=== PATIENT | male | born 1950 | race Caucasian/White ===

== ENCOUNTER 2023-08-04 08:52 | Inpatient (IN) | payer OTHER ==
[~2023-08-04] VITALS: Ht 190.5 cm; Wt 132.1 kg
[2023-08-04] VITALS (22 sets, daily range): BP systolic 60–176; BP diastolic 37–114
[~2023-08-04 08:52] MED LIST: ALBU90OI INH; CIPR500 PO; Flomax0.4 MG PO; ONDA4 PO; ONDA4ODT MM; Roxicodone5 MG PO
[2023-08-04 09:43] LABS: Hemoglobin 15.2 g/dL (13.5-17.5); Mean Corpuscular HGB 30.9 pg (26.0-34.0); Mean Corpuscular HGB Conc 33.8 g/dL (31.5-36.5); Mean Corpuscular Volume 92 fL (80-100); Mean Platelet Volume 10.2 fL (9.1-12.4); Platelet Count 204 K/mm3 (150-400); RDW Coefficient Variation 13.5 % (11.7-14.2); RDW Standard Deviation 45.7 fL (35.1-46.3); Red Blood Cell Count 4.92 M/mm3 (4.30-5.90); White Blood Cell Count 24.81 K/mm3 (4.00-11.30)
[2023-08-04 10:02] LABS: Albumin, Blood 3.2 g/dL (3.4-5.0); Bilirubin, Total 2.3 mg/dL (0.1-1.0); Bun/Creatinine Ratio 19.6 (12.0-20.0); Calcium, Blood 8.5 mg/dL (8.5-10.1); Creatinine, Blood 2.24 mg/dL (0.60-1.20); Globulin, Blood 3.3 g/dL (2.2-4.0); Potassium, Blood 4.4 mmol/L (3.5-5.5); Total Protein, Blood 6.5 g/dL (6.4-8.2)
[2023-08-04 10:14] LABS: BAND PERCENT MAN 18 % (0-8); BASOPHILS PERCENT MAN 0 % (0-2); EOSINOPHILS PERCENT MAN 0 % (0-6); LYMPHOCYTES ABSOLUTE MAN 0.74 K/mm3 (0.84-5.20); LYMPHOCYTES PERCENT MAN 3 % (21-46); METAMYELOCYTE ABSOLUTE MAN 0.49 K/mm3 (0.00-0.00); METAMYELOCYTE PERCENT MAN 2 % (0-0); MONOCYTES ABSOLUTE MAN 0.24 K/mm3 (0.16-1.47); MONOCYTES PERCENT MAN 1 % (4-13); NEUTROPHILS ABSOLUTE MAN 23.32 K/mm3 (1.96-9.15); SEG NEUTROPHILS PERCENT MAN 76 % (41-73); TOTAL CELLS COUNTED 100
[2023-08-04 12:49] LABS: Anti-Xa UFH, PHA Monitoring <0.10 IU/mL; International Normalized Ratio 1.64; Prothrombin Time Results 16.7 Sec (9.7-11.5)
--- NOTE | 2023-08-04 13:15 | NUR ---
Patient arrived on monitor and O2. He is alert and oriented and is able to communicate needs. His RR in the 30-40 and sats low 90%'s he is audibly coarse lung sounds. He was just finishing Abx on arrival. He was 4 person slide to ICU bed 10, hooked to monitor and 6L O2 via HF NC and sats >90%. Got stripped out of street cloths and uribnal at table side per request. Independent with positioning in bed for comfort. Called Dr Rowe and he arrived to assess. Systolic in the 80's and Midodrine 10 mg TID ordered. Weighed and called pharmacy for Heparin dosing. Student in room assessing
--- NOTE | 2023-08-04 15:30 | NUR ---
Called Dr Rowe and Midodrine orders and heparin started from ER orders. Midodrine 10 MG TID has been working and systolic >110. Heparin gtt at 15 units/kg/mion at 103 kg adjusted weight. He continues to work hard with minimal rest and continues cough from mucus. Roommate by and gave info. He has urinated 300 ml's tea colored urine.
[2023-08-04] MEDS ORDERED: DILT60 PO (15:46)
[2023-08-04] MEDS ORDERED: XARELTO20 MG PO (15:49)
[2023-08-04] MEDS ORDERED: DULO30 PO (15:54)
[2023-08-04] MEDS ORDERED: GABA300 PO (15:55)
[2023-08-04] MEDS ORDERED: MELA3 PO (15:56)
[2023-08-04] MEDS ORDERED: CYCL10 PO (15:57)
[2023-08-04] MEDS ORDERED: FAMO40 PO (15:57)
[2023-08-04] MEDS ORDERED: ATOR40TA PO (15:58)
--- NOTE | 2023-08-04 18:19 | NUR ---
[facility]air has been consulted and tried BiPap then air Vo at 40L 50% and patient unable to tolerate either. The plan after Dr speaking with patient is to intubate if Atrovent and Bumex does not work effecrtivly. patient frien at [facility] and patient gave decsion contact name and number, see Dr Mcnair note
[2023-08-04 19:25] LABS: Source, Urine Foley catheter
--- NOTE | 2023-08-04 19:27 | NUR ---
Patiient intubated with 7.5 ET on third attempt and is 26 cm at lower teeth. Dr Mcnair used 15 ml propofol 50 Rocironium and 200mcg Phenylepherine. Good color change and started Propofol gtt at 30 mcg/kg/hr. Placed OG and confirmed by xray with ET. I also place 16Fr Temp Encarnacion draining to gravity. Gave report to David KERNS
[2023-08-04 19:41] LABS: Appearance, Urine Clear (Clear); Bilirubin, Urine Neg (Neg); Blood, Urine 1+ (Neg); Color, Urine Yellow (P-Yellow); Glucose Qualitative, Urine Neg (Neg); Ketones, Urine Neg (Neg); Leukocyte Esterase, Urine Neg (Neg); Nitrite, Urine Neg (Neg); Protein, Urine Neg (Neg); Specific Gravity, Urine 1.015 (1.003-1.022); Urobilinogen, Urine NORM (Normal)
[2023-08-04 20:20] LABS: Bacteria Few /hpf; Red Blood Cells, Urine 0-2 /hpf (0-2); Squamous Epithelial Cells Rare /hpf (Few)
[2023-08-04 20:21] LABS: Mucus Light (0-Heavy)
--- NOTE | 2023-08-04 22:12 | NUR ---
ASSUMED CARE PT INTUBATED AND SEDATED; SPO2 >92% ON VENTILATOR; PT GIVEN LOPRESSOR AT START OF SHIFT D/T RATE IN 160'S, SEDATION HAD ALSO BEEN TITRATED UP D/T PT AGITATION AND FIGHTING VENTILATOR (PROPOFOL AT 50MCG/KG/MIN PER DR SARKAR). PT BECAME HYPOTENSIVE AND CENTRAL LINE WAS PLACED W/ NEOSYNEPHRINE INITIATED. HR IS NOW IN THE 100-110'S; MAP 65~ (TITRATING PER EMAR); AND SPO2 MAINTAINING >92%.
--- NOTE | 2023-08-04 22:51 | NUR ---
UPDATE FENTANYL GIVEN AND PT BECAME EVEN MORE HYPOTENSIVE. KRISTY TITRATED UP (SEE FLOWSHEET) AND PROPOFOL TITRATED DOWN. PROPOFOL AT HIGH RATE FOR VENTILATOR COMPLIANCE PER SARKAR AND MAINTAINED AT HIGH RATE D/T ROCURONIUM ADMINISTRATION, PT IS NOW OVERBREATHING VENT AND PROPOFOL TITRATED DOWN.
--- NOTE | 2023-08-04 22:54 | NUR ---
UPDATE PT FEBRILE @ 102.0; TYLENOL ALREADY GIVEN. ICEPACKS APPLIED.
--- NOTE | 2023-08-04 23:15 | NUR ---
UPDATE FIRE EDUCATION NOT GIVEN D/T PT BEING INTUBATED/SEDATED.
[2023-08-05] VITALS (90 sets, daily range): BP systolic 75–134; BP diastolic 39–120
[2023-08-05 01:04] LABS: Hematocrit 44.4 % (37.0-53.0); Hemoglobin 14.8 g/dL (13.5-17.5); Mean Corpuscular HGB 30.5 pg (26.0-34.0); Mean Corpuscular HGB Conc 33.3 g/dL (31.5-36.5); Mean Corpuscular Volume 92 fL (80-100); Platelet Count 239 K/mm3 (150-400); RDW Coefficient Variation 14.2 % (11.7-14.2); RDW Standard Deviation 47.9 fL (35.1-46.3); Red Blood Cell Count 4.85 M/mm3 (4.30-5.90); White Blood Cell Count 25.23 K/mm3 (4.00-11.30)
[2023-08-05 01:22] LABS: Albumin, Blood 2.7 g/dL (3.4-5.0); Albumin/Globulin Ratio 0.7 (0.8-1.8); Bilirubin, Total 0.9 mg/dL (0.1-1.0); Bun/Creatinine Ratio 21.5 (12.0-20.0); Calcium, Blood 7.5 mg/dL (8.5-10.1); Creatinine, Blood 2.37 mg/dL (0.60-1.20); Globulin, Blood 3.8 g/dL (2.2-4.0); Potassium, Blood 4.5 mmol/L (3.5-5.5); Total Protein, Blood 6.5 g/dL (6.4-8.2)
--- NOTE | 2023-08-05 04:05 | NUR ---
UPDATE LO CATHETER IRRIGATED D/T PT NOT HAVING OUTPUT AND BLADDER SCAN SHOWING 309. DURING IRRIGATION, CATHETER AND DRAINAGE BAG DISCONNECTED. LO PULLED AND NEW ONE RE-INSERTED. URINE SAMPLE TO BE COLLECTED. WHEN PULLING LO, PUS WAS NOTED COMING OUT OF URETHRA WHEN LO CATHETER WAS IRRIGATED 40ML'S WAS WITHDRAWN W/ 30~ML'S (ESTIMATION) OF URINE ON ROSA PAD.
[2023-08-05 05:17] LABS: Source, Urine Foley catheter
[2023-08-05 05:28] LABS: Appearance, Urine Hazy (Clear); Bilirubin, Urine Neg (Neg); Blood, Urine 4+ (Neg); Color, Urine Yellow (P-Yellow); Glucose Qualitative, Urine Neg (Neg); Ketones, Urine Neg (Neg); Leukocyte Esterase, Urine 3+ (Neg); Nitrite, Urine Neg (Neg); Protein, Urine 2+ (Neg); Urobilinogen, Urine NORM (Normal)
[2023-08-05 06:02] LABS: Amorphous Light (0-Heavy); Bacteria Many /hpf; Mucus Light (0-Heavy); Red Blood Cells, Urine 25-50 /hpf (0-2); Squamous Epithelial Cells Few /hpf (Few); White Blood Cells, Urine 25-50 /hpf (0-5)
--- NOTE | 2023-08-05 06:29 | NUR ---
SHIFT SUMMARY PT REMAINS INTUBATED AND SEDATED; SPO2 >92% ON VENTILATOR 16/440/5/85%; HR 110-120'S; MAP >65. HEPARIN, NEOSYNEPHRINE, AND PROPOFOL INFUSING (SEE FLOWSHEET). LO CATHETER PATENT AND DRAINING TO GRAVITY. LO CATHETER WAS REPLACED D/T DISLODGEMENT OF DRAINAGE BAG DURING LO IRRIGATION. IRRIGATED LO D/T MINIMAL URINE OUTPUT AND PT HAVING BLADDER SCAN SHOW 309. PURULENCE NOTED WHEN PULLING INITIAL LO.
[2023-08-05 09:24] LABS: Acinetobacter baumannii DNA Not Detected copy/mL (NOT DETECT); Enterobacter cloacae DNA Not Detected copy/mL (NOT DETECT); Escherichia coli DNA Not Detected copy/mL (NOT DETECT); Haemophilus influenzae DNA Not Detected copy/mL (NOT DETECT); Klebsiella aerogenes DNA Not Detected copy/mL (NOT DETECT); Klebsiella oxytoca DNA Not Detected copy/mL (NOT DETECT); Klebsiella pneumoniae DNA Not Detected copy/mL (NOT DETECT); Moraxella catarrhalis DNA Not Detected copy/mL (NOT DETECT); Proteus sp DNA Not Detected copy/mL (NOT DETECT); Pseudomonas aeruginosa DNA Not Detected copy/mL (NOT DETECT); Serratia marcescens DNA Not Detected copy/mL (NOT DETECT); Staphylococcus aureus DNA Not Detected copy/mL (NOT DETECT)
[2023-08-05 09:25] LABS: Adenovirus DNA Not Detected (NOT DETECT); Chlamydia pneumonia Not Detected (NOT DETECT); Human Coronavirus RNA Not Detected (NOT DETECT); Human Metapneumovirus RNA Not Detected (NOT DETECT); Influenza virus A RNA Not Detected (NOT DETECT); Influenza virus B RNA Not Detected (NOT DETECT); Legionella pneumophila Not Detected (NOT DETECT); Mycoplasma pneumoniae Not Detected (NOT DETECT); Rhinovirus+Enterovirus RNA Not Detected (NOT DETECT); Streptococcus agalactiae DNA Not Detected copy/mL (NOT DETECT); Streptococcus pneumoniae DNA Detected Bin >=10^7 copy/mL (NOT DETECT); Streptococcus pyogenes DNA Not Detected copy/mL (NOT DETECT)
[2023-08-05 09:26] LABS: Parainfluenza virus RNA Not Detected (NOT DETECT); Respiratory syncytial Vir RNA Not Detected (NOT DETECT)
--- NOTE | 2023-08-05 18:05 | NUR ---
SHIFT SUMMARY PT MADE GOOD PROGRESS THIS SHIFT. PT REMAINS INTUBATED AND SEDATED. PT WITH PERIODS OF RESTLESSNESS AND COUGHING FITS. PT UNABLE TO FOLLOW COMMANDS, BUT MOVES ALL EXTREMITIES SPONTANEOUSLY. PT VENT SETTINGS AC 16, TV 440, PEEP 5, FIO2 TITRATED DOWN TO 55%. PT WITH THICK PHAM ETT SECRETIONS WITH SUCTION. CENTRAL LINE TO RIJ REMAINS C/D/I. PT SEDATED WITH PROPOFOL AT 50 MCG/KG/MIN. HEPARIN INFUSING AT 19 UNITS/KG/HR AND NEOSYNEPHRINE TITRATED DOWN TO 80 MCG/MIN. VITAL SIGNS HAVE REMAINED STABLE. OGT REMAINS IN PLACE WITH TF STARTED AT 25 ML/HR THIS SHIFT. LO REMAINS IN PLACE WITH DARK YELLOW URINE OUTPUT NOTED. RECTAL TUBE PLACED THIS MORNING, PT CONTINUES WITH DARK BROWN LIQUID STOOL. SBW RESTRAINTS REMAIN IN PLACE. PT SIGNIFICANT OTHER AND ROOM MATE BY TO SEE PT THIS AFTERNOON. UPDATED TO PT CONDITION AND PLAN OF CARE. WILL CONTINUE TO MONITOR AND REPORT OFF TO ONCOMING RN.
--- NOTE | 2023-08-05 20:17 | NUR ---
ASSUMED CARE PT IS INTUBATED AND SEDATED. HR IN THE 90-100'S; MAP >65; SPO2 >92% ON VENTILATOR. PROPOFOL, HEPARIN, AND NEOSYNEPHRINE INFUSING (SEE FLOWSHEET). SEDATION VACATION WAS GIVEN W/ PROPOFOL TITRATED DOWN TO 20MCG/KG/MIN D/T PT NOT TOLERATING SEDATION ON SB PER REPORT. PT ATTEMPTED TO OPEN EYES WHEN PROMPTED, BUT DID NOT FOLLOW ANY OTHER COMMANDS. BEGAN TO COUGH AND FIGHT VENTILATOR SO SEDATION WAS TITRATED BACK UP. PT IS RESTING QUIETLY AT THIS TIME.
--- NOTE | 2023-08-05 20:21 | NUR ---
UPDATE BARBI MCGHEE CALLED TO INFORM THIS RN THAT SHE HAS LOCATED THE PT'S ADVANCED DIRECTIVE AND WILL BRING IN TOMORROW.
[2023-08-06] VITALS (80 sets, daily range): BP systolic 55–119; BP diastolic 41–82
[2023-08-06 04:05] LABS: Hematocrit 38.7 % (37.0-53.0); Hemoglobin 12.7 g/dL (13.5-17.5); Mean Corpuscular HGB 30.6 pg (26.0-34.0); Mean Corpuscular HGB Conc 32.8 g/dL (31.5-36.5); Mean Corpuscular Volume 93 fL (80-100); Platelet Count 186 K/mm3 (150-400); RDW Coefficient Variation 14.6 % (11.7-14.2); RDW Standard Deviation 50.8 fL (35.1-46.3); Red Blood Cell Count 4.15 M/mm3 (4.30-5.90); White Blood Cell Count 18.11 K/mm3 (4.00-11.30)
[2023-08-06 04:22] LABS: Bun/Creatinine Ratio 25.3 (12.0-20.0); Calcium, Blood 7.3 mg/dL (8.5-10.1); Creatinine, Blood 2.33 mg/dL (0.60-1.20); Phosphorus, Blood 3.4 mg/dL (2.5-4.9); Potassium, Blood 3.4 mmol/L (3.5-5.5)
--- NOTE | 2023-08-06 06:21 | NUR ---
SHIFT SUMMARY PT REMAINS INTUBATED AND SEDATED. SPO2 >92% 16/440/5/55%; MAP >65; HR IN THE 90'S. PROPOFOL, HEPARIN, AND NEOSYNEPHRINE INFUSING (SEE FLOWSHEET). PT RESTED QUIETLY T/O NIGHT W/ INTERMITTENT COUGHING THAT WAS RESOLVED BY SUCTIONING. MODERATE AMOUNT OF THICK PHAM SECRETIONS SUCTIONED OUT. NO ACUTE EVENTS OVERNIGHT.
--- NOTE | 2023-08-06 15:51 | NUR ---
Pt. in bed alert but intubated when I enter the room. Friends are present and welcome my visit. Am able to communicate with Pt. although he must respond nonverbally with hand signals. Friends a re supportive and are able to engage in a form of life review for the Pt. Pt. communicates that the breathing tube is uncomfortable. With empathy am able to normalize the Pt. expereince. Prayed for Pt. with his permission. Pt. 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
[2023-08-06 18:40] LABS: C DIFFICILE DNA Negative (Negative)
--- NOTE | 2023-08-06 19:18 | NUR ---
SHIFT SUMMARY PATIENT WAS ON SPONTANEOUS FOR MOST OF SHIFT WITH PROPOFOL OFF. PRECEDEX INF @ 0.3 MCG/KG/HR. KRISTY WAS ABLE TO BE TITRATED OFF ONCE PROPOFOL WAS TURNED OFF. LO REMOVED D/T PATIENT DISCOMFORT. RECTAL TUBE REMAINS IN PLACE AND C-DIFF SPECIMIN SENT. HEPARIN INCREASED TO 23 UNITS/KG/HR. AT END OF SHIFT PATIENT BECAME CONFUSED AND REQUESTING NURSE FROM LAST NIGHT VIA WRITING, BUT WHEN LAST NIGHT NURSE WAS BROUGHT TO THE ROOM HE SHOOK HIS HEAD "NO". PROPOFOL RESTARTED FOR VENTILATOR COMPLIANCE AFTER RR INCREASED TO 30'S-40'S. NO OTHER CHANGES DURING SHIFT.
--- NOTE | 2023-08-06 20:52 | NUR ---
ASSUMED CARE PT INITIALLY ALERT AND ORIENTED X2-3 AT START OF SHIFT, WRITING MESSAGE TO OFFGOING RN, CONFUSED ABOUT WHO TOOK CARE OF HIM LAST NIGHT. SEDATION WAS RE-INITIATED D/T DELAYING EXTUBATION TIL TOMORROW PER OFFGOING RN. AFTER SEDATION WAS INITIATED, PT'S MAP DROPPED TO 60~'S AND NEOSYNEPHRINE WAS RE-INITIATED. PT IS CURRENTLY RESTING QUIETLY, SPO2 >92%, MAP >65, HR 90'S. HEPARIN, NEOSYNEPHRINE, AND PROPOFOL INFUSING W/ PRECEDEX ON SB (SEE FLOWSHEET). RECTAL TUBE AND CONDOM CATHETER PATENT AND DRAINING TO GRAVITY.
--- NOTE | 2023-08-06 21:25 | NUR ---
UPDATE PT NOT GIVEN FIRE EDUCATION D/T INTUBATED/SEDATED STATUS. NO IGNITABLE OBJECTS IN ROOM
[2023-08-07] VITALS (81 sets, daily range): BP systolic 77–123; BP diastolic 59–99
[2023-08-07 03:53] LABS: Bun/Creatinine Ratio 30.5 (12.0-20.0); Calcium, Blood 8.1 mg/dL (8.5-10.1); Creatinine, Blood 1.77 mg/dL (0.60-1.20); Phosphorus, Blood 2.3 mg/dL (2.5-4.9); Potassium, Blood 3.4 mmol/L (3.5-5.5)
--- NOTE | 2023-08-07 05:56 | NUR ---
SHIFT SUMMARY PT IS INTUBATED AND SEDATED. SPO2 >92% 16/440/5/50%; MAP>65; RATE IN THE 80'S. TUBE FEED, HEPARIN, PRECEDEX, PROPOFOL, AND NEOSYNEPHRINE INFUSING (SEE FLOWSHEET). NEOSYNEPHRINE TITRATED DOWN GRADUALLY T/O NIGHT. NO ACUTE EVENTS OVERNIGHT. RECTAL TUBE PATENT AND DRAINING TO GRAVITY.
--- NOTE | 2023-08-07 11:26 | NUR ---
Pt. is intubated and mostly not responsive. Pt. is being weaned off of sedation. Pts. friend is present and welcomes my visit. Facilitate a life review and eastablish relational trust. Consider matters of yarelis and belief. Friend verbal[facility] and welcomed my return. Will remain avilable to the Pt. and his support relationships.
--- NOTE | 2023-08-07 18:38 | NUR ---
Shift summary. Assumed care at 0700, bedside report received. Pt on ventilator and sedation. Sedation titrated off this am, see flowsheet. Pt extubated at approximately 1307 to airvo 50L, 80% Fi02 with good results. Pt alert and oriented, call light within reach. Pt continues to have liquid bowel movements. Pt required straight cath twice during shift for urinary retention. Currently resting in bed. R/IJ central line remains in place, heparin infusing at 23 units/kg/hr, NS TKO. Pt remains in AFIB at this time. All other VS stable. See chart for further details. Will report off to nightshift RN.
--- NOTE | 2023-08-07 21:40 | NUR ---
PT REFUSES TO WEAR OXYGEN SUPPLEMENTATION AT THIS TIME. PT GIVEN ALL INFORMATION REGARDING OXYGEN NEEDS OF THE BODY AND POSSIBLE NEED OF INTUBATION OR IF NOT SUPPLEMENTED PROPERLY. PT STILL REFUSING OXYGEN AT THIS TIME. SKIMMER YING CHAVEZ INFORMED OF REFUSAL. SPO2 RANGING FROM 85% TO 90% DEPENDING ON MOVEMENT, COUGHING UP OF SPUTUM, AND TALKING. WILL CONTINUE TO MONITOR.
--- NOTE | 2023-08-07 22:12 | NUR ---
PT CALLED THIS RN TO ROOM. PT COMPLAINING OF LEG CRAMPS. PT ASKED THIS RN IF IT WAS DUE TO NOT HAVING OXYGEN SUPPLEMENTATION. PT INFORMED THAT IT COULD BE. THIS RN ASKED PT 4 QUESTIONS TO DETERMINE ORIENTATION. A/O X4. PT STATES HE DOES NOT WANT TO BE INTUBATED AGAIN. PT REQUESTED TO HAVE OXYGEN SUPPLEMENTATION AGAIN. PT PUT ON 4 L NC AT THIS TIME. SPO2 >91%.
[2023-08-08] VITALS (50 sets, daily range): BP systolic 112–171; BP diastolic 64–120
[2023-08-08 03:17] LABS: Hematocrit 37.6 % (37.0-53.0); Hemoglobin 12.6 g/dL (13.5-17.5); Mean Platelet Volume 10.4 fL (9.1-12.4); Platelet Count 204 K/mm3 (150-400)
[2023-08-08 03:34] LABS: Bun/Creatinine Ratio 32.4 (12.0-20.0); Calcium, Blood 8.1 mg/dL (8.5-10.1); Creatinine, Blood 1.73 mg/dL (0.60-1.20); Magnesium, Blood 2.1 mg/dL (1.6-2.4); Phosphorus, Blood 3.2 mg/dL (2.5-4.9); Potassium, Blood 3.2 mmol/L (3.5-5.5)
--- NOTE | 2023-08-08 05:55 | NUR ---
END OF SHIFT SUMMARY A/O X4. PT IS VERY TALKATIVE. REQUESTING NO VISITORS TODAY D/T NOT FEELING UP TO ENTERTAINING ANYONE. PT USED CALL LIGHT EVERY 5-15 MINUTES THROUGHOUT THE NIGHT. RESP- PT TOOK OFF HIGH FLOW AT BEGINNING OF SHIFT, WITHIN AND HOUR OF REFUSING TO WEAR OXYGEN SUPPLEMENT PT AGREED TO USE NC. PT HAS MAINTAINED SPO2 > 90% WITH 4.5 L/NC. PT USES SUCTION ON HIS OWN FOR SPUTUM. COUGH IS SUFFICIENT WITH MODERATE OUTPUT OF PHAM SPUTUM. PT C/O INCREASED SOB MID SHIFT. UPON AUSCULTATION CRACKLES HEARD BILATERALLY IN LOWER TO MID LOBES. LASIX GIVEN PER ORDER AFTER BNP RESULTS >200. URINATION INCREASED WELL. CARDIAC- A-FIB THROUGHOUT SHIFT. HEPARIN NOT CHANGED. DENIES CP. GI,- MULTIPLE BM THIS SHIFT. LIQUID/PASTEY STOOL BROWN IN COLOR. CONDOM CATHETER INTIATED IN START OF SHIFT D/T HIGH NEED FOR URINAL WITH LITTLE OUTPUT. BLADDER SCAN DONE AT TIME OF INCREASED HR AND RR WHEN CRACKLES HEARD IN LUNGS. FOUND ONLY 130 MLS URINE IN BLADDER AT THAT TIME. PT NOW COMPLAINING OF PAIN WHILE URINATING IN TIP OF PENIS AREA. CONDOM CATHETER DC'D PER PT REQUEST WITH NO RELIEF. INTEG- SLIGHT REDNESS IN GROIN AND BUTTOCK AREAS WHERE STOOL HAS TOUCHED THROUGHOUT THIS SHIFT. PT CHANGED PROMPTLY EACH TIME. POWDER USED D/T MOISTURE IN FOLDS FROM CONSTANT WIPING. NO OTHER ACUTE CHANGES TO REPORT AT THIS TIME. WILL CONTINUE TO MONITOR UNTIL REPORT GIVEN TO AM RN.
--- NOTE | 2023-08-08 07:42 | NUR ---
Assumed care at approximately 0700, bedside report received from nightshift RN. Pt resting in bed, on 02 via NC at 5 L/min. Pt alert, c/o lack of sleep. R/IJ central line in place, Heparin infusing at 23 units/kg/hr. Call light within reach, no acute needs at time of report. Will continue to monitor.
--- NOTE | 2023-08-08 18:37 | NUR ---
Summary. Pt rested in bed throughout shift, up to side of bed with OT and PT. Pt on NC at 4 L/min, able to tolerate exertion for greater periods of time this shift. Heparin infusion DC'd at end of shift per Dr. Rowe. R/IJ central line remains in place, PG placed in MEJIA. Pt continues to have occasional incontinent voids/bm. CHG bath completed this shift. Swallow eval completed this morning, see notes. No acute events this shift, see chart for further details. Will continue to monitor and report off to nightshift RN.
--- NOTE | 2023-08-09 00:34 | NUR ---
SHIFT SUMMARY/REPORT TO MEDICAL FLOOR RN this rn assumed care at 1900. vital signs stable. tele aflutter 90-100. spo2 >90% on 2l nc. patient is alert and oriented x4. perrla. patient uses call light often and this rn educated patient on appropriate use. patient did verbalize understanding. see shift assessment for further detials. patient central line removed this shift and no issues noted. dressing in place. condom cath placed this shift and draining with gravity. patient takes pills whole one at time with water or liquid of choice. plan of care is up to date. moving up to medical floor room 340. report given to medical floor nurse.
--- NOTE | 2023-08-09 00:50 | NUR ---
IN HOUSE TRANSFER. PATIENT TRANSFERED FROM ICU TO ROOM 340 BY ICU HOSPITAL BED WITH ONE ASSIST. PATIENT TRANSFERED TO BED IN ROOM FROM ICU BED WITH SLIDE SHEET AND 4 PERSON ASSIST. PATIENT ARRIVED WITH A CONDOM CATH AND 2LPM OXYGEN VIA NASAL CANNULA. MEDS AND CHART SENT WITH PATIENT.
[2023-08-09 02:05] VITALS: BP 152/104
--- NOTE | 2023-08-09 04:32 | NUR ---
SHIFT ASSESSMENT. PATIENT IS PLEASANT AND COOPERATIVE WITH CARE. PATIENT PRODUCTION CONTROLLER LIGHT OFTEN FOR DRINKS, RAISING AND LOWERING HEAD OF BED-ENCOURAGED PATIENT TO DO MUCH HE CAN TO AID IN FUNCTION. PATIENT IS ABLE TO HELP ROLL WITH CHNANGES. CONDOM CATHETER PLACED DRAINING TO GRAVITY. PATIENT IS ABLE TO USE SECTION HIMSELF TO REMOVE SECRETIONS. HEAD OF BED ELEVATED, PATIENT DESATS IN TO THE HIGH 80'S WITH ACTIVITY SUCH INCONTINENCE CHANGES. PATIENT DENIES CHEST PAIN/PRESSURE/TIGHTNESS. PAIN ASSESSED-PATIENT DENIES PAIN BUT REPORTS DISCOMFORT R/T PREVIOUS STRAIGHT CATHS. FOOT OF BED REMOVED FOR PATIENT COMFOT PATIENT IS TALL AND FEET PUSHED AGAINST END OF BED. PATIENT HAD SCANT AMOUNT OF BLOOD WHEN HE BLEW HIS NOSE-REPORTS NOSE FEELS DRY, ADDED HUMIDIFICATION TO OXYGEN. PATIENT ON TELE RUNNING AFIB AT 107 BPM, TACHY ON CONTINUOUS PULSE OX. BED IS LOCKED IN THE LOWEST POSITION WITH CALL LIGHT IN REACH FOR SAFETY.
[2023-08-09 05:33] LABS: Hemoglobin 13.7 g/dL (13.5-17.5); Mean Platelet Volume 10.1 fL (9.1-12.4); Platelet Count 260 K/mm3 (150-400)
[2023-08-09 06:08] LABS: Bun/Creatinine Ratio 36.1 (12.0-20.0); Calcium, Blood 8.8 mg/dL (8.5-10.1); Creatinine, Blood 1.33 mg/dL (0.60-1.20); Magnesium, Blood 2.2 mg/dL (1.6-2.4); Phosphorus, Blood 2.4 mg/dL (2.5-4.9); Potassium, Blood 3.2 mmol/L (3.5-5.5)
--- NOTE | 2023-08-09 06:29 | NUR ---
CALLED PLACED TO BARBI MCGHEE PER PATIENTS REQUEST TO NOTIFY HER OF NEW ROOM ASSIGNMENT.
[2023-08-09 07:48] VITALS: BP 141/91
[2023-08-09 12:01] LABS: Source, Urine Straight Cath
[2023-08-09 12:13] LABS: Appearance, Urine Clear (Clear); Bilirubin, Urine Neg (Neg); Blood, Urine 4+ (Neg); Glucose Qualitative, Urine Neg (Neg); Ketones, Urine Neg (Neg); Leukocyte Esterase, Urine Neg (Neg); Nitrite, Urine Neg (Neg); Protein, Urine Neg (Neg); Urobilinogen, Urine NORM (Normal)
[2023-08-09 12:27] LABS: Color, Urine Pale Yellow (P-Yellow)
[2023-08-09 12:34] LABS: White Blood Cells, Urine 0-2 /hpf (0-5)
[2023-08-09 12:45] LABS: Bacteria Few /hpf
[2023-08-09 12:46] LABS: Amorphous Mod (0-Heavy)
[2023-08-09 12:48] LABS: Squamous Epithelial Cells Few /hpf (Few)
[2023-08-09 12:49] LABS: Mucus Light (0-Heavy)
[2023-08-09 14:55] VITALS: BP 143/95
--- NOTE | 2023-08-09 17:16 | NUR ---
SHIFT SUMMARY: Pt remains A&Ox3 this shift. Generalized pain managed with po meds. VSS. Tachypnea noted, coached on deep breathing exercises and to slow breathing. Continuous pulse ox in place. OOB with 2 person ast to recliner this am. Pt able to nap this afternoon. Call light in reach, will continue to monitor.
[2023-08-09 20:13] VITALS: BP 147/99
[2023-08-10 02:20] VITALS: BP 145/88
--- NOTE | 2023-08-10 05:17 | NUR ---
SUMMARY PT RESTING IN BED, FRIEND IN THE RECLINER NEXT TO HIM, PT HAS BEEN RESTLESS T/O THE NIGHT, TALKATIVE T/O THE NIGHT, PT MED PER EMAR FOR SLEEP AND FOR PAIN, PT COUGHING UP PHAM SPUTUM AND IS ABLE TO SUCTION HIMSELF, PT EXPRESSED HIS IMPATIENTCE WITH HIS RECOVERY AND WITH HIS WEAKNESS, EDUCATED PATIENT ABOUT THE IMPORTANCE OF WORKING WITH THERAPY, PLAN IS TO GO TO SNF WHEN READY, PT HAD AN EPISODE OF INCONTINENCE AND WHILE BEING CLEANED UP BECAME TACHYCARDIC, RECOVERED WITHOUT MEDICATION, NO FURTHER TACHY EPISODES T/O THE NIGHT, VSS, WILL CONT TO MONITOR
[2023-08-10 06:20] LABS: Bun/Creatinine Ratio 30.2 (12.0-20.0); Calcium, Blood 8.9 mg/dL (8.5-10.1); Creatinine, Blood 1.39 mg/dL (0.60-1.20); Potassium, Blood 3.5 mmol/L (3.5-5.5)
[2023-08-10 08:23] VITALS: BP 157/98
[2023-08-10 16:21] VITALS: BP 145/94
--- NOTE | 2023-08-10 17:23 | NUR ---
PT WITH C/O SPASMING/TWINGING IN LOWER ABD. CALL TO DR. MARADIAGA: FENTANYL 0.25-0.5MCG IV Q6 PRN. NOTIFY IF NO IMPROVEMENT IN PAIN/BLADDER SPASMS. ALSO OK TO ORDER LOW-DOSE ZOLPIDEM TARTRATE FOR SLEEP AID TONIGHT.
--- NOTE | 2023-08-10 18:23 | NUR ---
DAY SHIFT SUMMARY: A&Ox4. COOPERATIVE WITH CARE. DIFFICULTY GETTING COMFORTABLE TODAY; C/O BLADDER SPASMS AND ABD PAIN; OBTAINED Rx FOR PRN FENTANYL AND TROSPIUM CHLORIDE. CONDOM CATHETER DUE TO POLYURIA LIKELY R/T HIGH DOSE LASIX. LUNGS COARSE THROUGHOUT; COUGH WITH SPUTUM, PROVIDING HIS OWN SUCTIONING @ BEDSIDE. POWERGLIDE TO MEJIA FLUSHES BUT DOES NOT DRAW. EXCORIATIONS NOTED IN GROIN. REPORT TO ONCOMING RN.
[2023-08-10 19:35] VITALS: BP 144/85
[2023-08-10 21:27] LABS: Source, Urine Clean Catch
[2023-08-10 21:39] LABS: Bilirubin, Urine Neg (Neg); Blood, Urine 5+ (Neg); Glucose Qualitative, Urine Neg (Neg); Ketones, Urine Neg (Neg); Leukocyte Esterase, Urine Neg (Neg); Nitrite, Urine Neg (Neg); Protein, Urine Neg (Neg); Specific Gravity, Urine 1.015 (1.003-1.022); Urobilinogen, Urine NORM (Normal)
[2023-08-10 21:44] LABS: Appearance, Urine Hazy (Clear); Color, Urine Yellow (P-Yellow)
[2023-08-10 21:46] LABS: Amorphous Light (0-Heavy); Bacteria Rare /hpf; Squamous Epithelial Cells Rare /hpf (Few); Uric Acid Crystals Many /hpf; White Blood Cells, Urine Not Seen /hpf (0-5)
[2023-08-11 05:18] VITALS: BP 142/94
--- NOTE | 2023-08-11 05:42 | NUR ---
SHIFT SUMMARY: PT IS ADMITTED FOR SEPTIC SHOCK AND IS A DNR. HE IS ALERT AND ABLE TO MAKE NEEDS KNOWN. STAYED IN BED THIS SHIFT BUT WAS A 1P FOR MOST ADL S. DENIES PAIN OR DISCOMFORT WHEN ASKED. ALBA REPORTED AFIB @ 104. CURRENTLY USING A CONDOM CATH FOR URINATION. LUNGS WERE COURSE THROUGH OUT AND HAD A PRODUCTIVE COUGH TO WHICH HE WOULD SELF SUCTION.
[2023-08-11 06:16] LABS: Bun/Creatinine Ratio 33.1 (12.0-20.0); Creatinine, Blood 1.24 mg/dL (0.60-1.20); Potassium, Blood 3.2 mmol/L (3.5-5.5)
[2023-08-11 07:41] VITALS: BP 146/93
[2023-08-11 15:23] VITALS: BP 130/92
--- NOTE | 2023-08-11 20:02 | NUR ---
SHIFT SUMMARY: PT A&O X4. PLEASANT AND COOPERATIVE WITH CARE. PT WORKED WITH PT THIS SHIFT. PT ONE PERSON ASSIST W/FWW. PT C/O PRESSURE ON ABDOMEN AROUND 1200. BLADDER SCAN OF PT SHOWED AMOUNT OF 804ML. ATTEMPTED TO PLACE PT ON TOILET FOR VOID. PT EVENTUALLY ABLE TO VOID BUT POST VOID STILL OVER 800. STRAIGHT CATH COMPLETED BY STUDENT RN AND INSTRUCTOR WITH AN AMOUNT OF 1300 EMPTIED FROM BLADDER. PT TITRATED FROM 2L NC TO 1L MAINTAINING SATS >92%. NO C/O PAIN THIS SHIFT OTHER THAN BLADDER SPASMS. MEDICATED PER EMAR. CALL LIGHT IN REACH. BED IN LOWEST POSITION. REPORT GIVEN TO ONCOMING RN.
[2023-08-11 23:57] VITALS: BP 137/89
[2023-08-12 03:28] VITALS: BP 133/91
--- NOTE | 2023-08-12 04:12 | NUR ---
BRANCH LIBRARY CLERK SUMMARY VSS. UP WITH ASSIST NEEDED TO VOID IN BATHROOM. COOPERATIVE WITH CARE. HOB REMAINS ELEVATED AND O2 AT 1L/MIN PER NC FOR RESPS. LUNG SOUNDS DIMINISHED. NO C/O VOICED HAS BEEN RESTING QUIETLY WITH FWE INTERRUPTIONS. CALL LIGHT IN REACH. RAILS UP X 2 FOR SAFETY. WILL CONTINUE TO MONITOR
[2023-08-12 05:56] LABS: Hematocrit 41.9 % (37.0-53.0); Hemoglobin 13.8 g/dL (13.5-17.5); Mean Corpuscular HGB 30.1 pg (26.0-34.0); Mean Corpuscular HGB Conc 32.9 g/dL (31.5-36.5); Mean Corpuscular Volume 92 fL (80-100); Platelet Count 563 K/mm3 (150-400); RDW Coefficient Variation 14.6 % (11.7-14.2); RDW Standard Deviation 48.9 fL (35.1-46.3); Red Blood Cell Count 4.58 M/mm3 (4.30-5.90); White Blood Cell Count 14.37 K/mm3 (4.00-11.30)
[2023-08-12 06:29] LABS: Albumin, Blood 2.6 g/dL (3.4-5.0); Anion Gap 7 mmol/L (6-16); Blood Urea Nitrogen 35 mg/dL (8-24); Bun/Creatinine Ratio 30.7 (12.0-20.0); CO2, Blood 29 mmol/L (21-32); Calcium, Blood 8.6 mg/dL (8.5-10.1); Chloride, Blood 112 mmol/L (98-108); Creatinine, Blood 1.14 mg/dL (0.60-1.20); Glomerular Filtration Rate 68 (60-); Glucose, Blood 117 mg/dL (70-99); Magnesium, Blood 1.8 mg/dL (1.6-2.4); Phosphorus, Blood 3.5 mg/dL (2.5-4.9); Potassium, Blood 3.2 mmol/L (3.5-5.5); Sodium, Blood 148 mmol/L (136-145)
[2023-08-12 07:41] VITALS: BP 133/89
[2023-08-12 16:01] VITALS: BP 123/75
--- NOTE | 2023-08-12 18:05 | NUR ---
SHIFT SUMMARY A&0X4, COOPERATIVE WITH CARE. DENIES CP/PRESSURE, HEADACHE, SOB, OR DIZZINESS. PATIENT REPORTS THAT HE HAS URINATED FREQUENTLY (EVERY HOUR TO HOUR AND A HALF) T/O SHIFT, OUTPUT 100ML OR LESS EACH TIME. BLADDER SCANNED PATIENT WITH A RESULT OF 998. ORDER RECEIVED FROM [facility] TO BLADDER SCAN PATIENT Q SHIFT AND STRAIGHT CATH IF >300. PATIENT'S APPETITE IS POOR. DRINKING PLENTY OF FLUIDS. SLEF SUCTIONS - PHAM FROTHY SPUTUM NOTED IN CANISTER. PATIENT CURRENTLY RESTING IN BED. BED IN LOWEST POSITION. CALL LIGHT WITHIN REACH.
--- NOTE | 2023-08-12 19:01 | NUR ---
NURSE ADVISOR REPORTED PATIENT CONVERTED FROM AFLUTTER TO SR AT 1739, THEN HAD A 7 BEAT RUN OF VTACH AT 1740. PATIENT REMAINS SINUS IN THE 80'S AT THIS TIME. PATIENT WAS ASYMPTOMATIC DURING THE EVENT.
[2023-08-12 19:26] VITALS: BP 127/68
--- NOTE | 2023-08-13 03:22 | NUR ---
SERVICE PORTER SUMMARY VSS. A/O X 4. UP WITH ASSIST TO BATHROOM NEEDED, USES WALKER. HAS BEEN RESTING QUIETLY WITH FEW INTERRUPTIONS. WILL BLADDER SCAN PT LATER AND IF HAS OVER 300 CC, WILL STRAIGHT CATH. BED IN LOW POSITION. CALL LIGHT IN REACH, WILL CONTINUE TO MONITOR
[2023-08-13 04:42] VITALS: BP 135/81
[2023-08-13 05:32] LABS: Hematocrit 39.3 % (37.0-53.0); Hemoglobin 12.7 g/dL (13.5-17.5); Mean Corpuscular HGB 30.3 pg (26.0-34.0); Mean Corpuscular HGB Conc 32.3 g/dL (31.5-36.5); Mean Corpuscular Volume 94 fL (80-100); Mean Platelet Volume 9.6 fL (9.1-12.4); Platelet Count 523 K/mm3 (150-400); RDW Coefficient Variation 14.4 % (11.7-14.2); RDW Standard Deviation 50.3 fL (35.1-46.3); Red Blood Cell Count 4.19 M/mm3 (4.30-5.90)
[2023-08-13 06:10] LABS: Albumin, Blood 2.5 g/dL (3.4-5.0); Anion Gap 4 mmol/L (6-16); Blood Urea Nitrogen 27 mg/dL (8-24); Bun/Creatinine Ratio 24.1 (12.0-20.0); CO2, Blood 32 mmol/L (21-32); Calcium, Blood 8.5 mg/dL (8.5-10.1); Chloride, Blood 112 mmol/L (98-108); Creatinine, Blood 1.12 mg/dL (0.60-1.20); Glomerular Filtration Rate 69 (60-); Glucose, Blood 117 mg/dL (70-99); Phosphorus, Blood 2.8 mg/dL (2.5-4.9); Potassium, Blood 3.3 mmol/L (3.5-5.5); Sodium, Blood 148 mmol/L (136-145)
[2023-08-13 07:19] VITALS: BP 132/78
--- NOTE | 2023-08-13 07:45 | NUR ---
BLADDER SCAN OVER 300 CC. STRAIGHT CATHED PER MD ORDERS, ASEPTIC TECHNIQUE. OUT PUT 800 CC. TOLERATED WELL. CALL LIGHT IN REACH.
--- NOTE | 2023-08-13 11:48 | NUR ---
Pt. is sitting up in his bed when he welcomed my visit. Pt. is pleasant. Facilitated a life review and established rapport. Pt. displayed evidence of engagement and awareness. Pt. verbalized expectation of being transfered to [facility] at the end of the week. COnsidered matters of yarelis and belief. Pt. verbalized how much the [employer] had helped him when he lost his , and requested [facility] manager to contact Francisca Aponte and let her know he was grateful. Prayed with the Pt. Pt. verbalized gratitude for the spiritual care visit.
[2023-08-13 15:32] VITALS: BP 127/71
[2023-08-13 17:24] LABS: Source, Urine Foley catheter
[2023-08-13 17:39] LABS: Appearance, Urine Clear (Clear); Bilirubin, Urine Neg (Neg); Blood, Urine 1+ (Neg); Color, Urine Yellow (P-Yellow); Glucose Qualitative, Urine Neg (Neg); Ketones, Urine Neg (Neg); Leukocyte Esterase, Urine Neg (Neg); Nitrite, Urine Neg (Neg); Protein, Urine Neg (Neg); Urobilinogen, Urine NORM (Normal)
[2023-08-13 17:51] LABS: Bacteria Not Seen /hpf; Hyaline Casts 0-2 /lpf (0-2); Squamous Epithelial Cells Not Seen /hpf (Few); White Blood Cells, Urine 0-2 /hpf (0-5)
--- NOTE | 2023-08-13 17:53 | NUR ---
PATIENT A/OX4, UP WITH FWW AND SBA. WORKED WITH PT/T TODAY. VSS, ON 3LO2 AT START OF SHIFT. WEANED TO RA AND MAINTAING SATS >91%. PATIENT REMAINED UNABLE TO VOID, BLADDER SCAN WAS GREATER THAN 500 ML'S. LO PLACED PER MD ORDER AND SAMPLE SENT TO LAB. PATIENT SELF SUCTIONING, MODERATE AMOUNT OF WHITE/PHAM SPUTUM. BREATHING TREATMENTS PRN. TOLERATING REGULAR DIET. CALM AND COOPERATIVE WITH CARE, CALLS APPORPRIATELY FOR ASSISTANCE. PLAN IS SNF AT DISCHARGE.
[2023-08-13 20:03] VITALS: BP 129/74
[2023-08-14 02:41] VITALS: BP 136/76
--- NOTE | 2023-08-14 04:02 | NUR ---
SHIFT SUMMARY PATIENT A/Ox4, PLEASANT/COOPERATIVE. DENIES PAIN/DISCOMFORT, VSS, SPO2 >90% ON RA. CONTINUES ON TELE, AFIB 70s. NO ACUTE CHANGES NOTED OVERNIGHT. BED LOCKED AND IN LOWEST POSITION, CALL LIGHT WITHIN REACH.
[2023-08-14 06:54] LABS: BASOPHILS ABSOLUTE AUTO 0.03 K/mm3 (0.00-0.23); BASOPHILS PERCENT AUTO 0 % (0-2); EOSINOPHILS ABSOLUTE AUTO 0.44 K/mm3 (0.00-0.68); EOSINOPHILS PERCENT AUTO 3 % (0-6); Hematocrit 37.7 % (37.0-53.0); Hemoglobin 12.3 g/dL (13.5-17.5); IMMATURE GRAN ABSOLUTE AUTO 0.09 K/mm3 (0.00-0.10); IMMATURE GRAN PERCENT AUTO 1 % (0-1); LYMPHOCYTES ABSOLUTE AUTO 1.54 K/mm3 (0.84-5.20); LYMPHOCYTES PERCENT AUTO 9 % (21-46); MONOCYTES ABSOLUTE AUTO 0.89 K/mm3 (0.16-1.47); MONOCYTES PERCENT AUTO 5 % (4-13); Mean Corpuscular HGB 30.4 pg (26.0-34.0); Mean Corpuscular HGB Conc 32.6 g/dL (31.5-36.5); Mean Corpuscular Volume 93 fL (80-100); Mean Platelet Volume 9.9 fL (9.1-12.4); NEUTROPHILS ABSOLUTE AUTO 13.43 K/mm3 (1.96-9.15); NEUTROPHILS PERCENT AUTO 82 % (41-73); Platelet Count 494 K/mm3 (150-400); RDW Coefficient Variation 13.9 % (11.7-14.2); Red Blood Cell Count 4.04 M/mm3 (4.30-5.90); White Blood Cell Count 16.42 K/mm3 (4.00-11.30)
[2023-08-14 07:28] LABS: Albumin, Blood 2.2 g/dL (3.4-5.0); Anion Gap 5 mmol/L (6-16); Blood Urea Nitrogen 22 mg/dL (8-24); Bun/Creatinine Ratio 23.1 (12.0-20.0); CO2, Blood 28 mmol/L (21-32); Calcium, Blood 8.1 mg/dL (8.5-10.1); Chloride, Blood 113 mmol/L (98-108); Creatinine, Blood 0.95 mg/dL (0.60-1.20); Glomerular Filtration Rate 85 (60-); Glucose, Blood 112 mg/dL (70-99); Phosphorus, Blood 2.3 mg/dL (2.5-4.9); Potassium, Blood 3.4 mmol/L (3.5-5.5); Sodium, Blood 146 mmol/L (136-145)
[2023-08-14 13:08] LABS: SARS-Cov-2 (COVID-19) PCR, MMC NEGATIVE (NEGATIVE)
[2023-08-14] MEDS ORDERED: TAMS.4ER PO (15:21)
[2023-08-14] MEDS ORDERED: ELIQUIS5 M2 PO (15:21)
[2023-08-14] MEDS ORDERED: DOCU100 PO (15:24)
[2023-08-14] MEDS ORDERED: IPRAT-ALBUT 0.5-3 ML INH (15:25)
--- NOTE | 2023-08-14 15:47 | NUR ---
PATIENT D/C'D TO [facility] VIA [facility]. DC PACKET SENT WITH HYDRO EXCAVATION OPERATOR. REPORTS CALLED TO [facility]. PATIENT DENIES ANY FURTHER QUESTIONS OR CONCERNS.
== END 2023-08-14 15:43 | DRG 871 ==
LOC: ER 08:52 → ICUE 11:30 → MEDS 11:30 → ICUE 12:41 → MEDS 08-09 00:46
PROVIDERS: Emergency Medicine; Internal Medicine; Internal Medicine Critical Care Medicine; Student in an Organized Health Care Education/Training Program; ADMIT Internal Medicine
PROC: 5A1945Z Respiratory Ventilation, 24-96 Consecutive Hours (ICD-10-PCS; principal; 2023-08-04)
PROC: 0BH17EZ Insertion of Endotracheal Airway into Trachea, Via Natural or Artificial Opening (ICD-10-PCS; 2023-08-04)
PROC: 5A09357 Assistance with Respiratory Ventilation, Less than 24 Consecutive Hours, Continuous Positive Airway Pressure (ICD-10-PCS; 2023-08-04)
PROC: 02HV33Z Insertion of Infusion Device into Superior Vena Cava, Percutaneous Approach (ICD-10-PCS; 2023-08-04)
PROC: 0T9B70Z Drainage of Bladder with Drainage Device, Via Natural or Artificial Opening (ICD-10-PCS; 2023-08-05)
PROC: 3E03329 Introduction of Other Anti-infective into Peripheral Vein, Percutaneous Approach (ICD-10-PCS; 2023-08-05)
PROC: 3E033XZ Introduction of Vasopressor into Peripheral Vein, Percutaneous Approach (ICD-10-PCS; 2023-08-06)
PROC: 5A0935A Assistance with Respiratory Ventilation, Less than 24 Consecutive Hours, High Flow/Velocity Cannula (ICD-10-PCS; 2023-08-07)
DX: A40.3 Sepsis due to Streptococcus pneumoniae (principal); I21.A1 Myocardial infarction type 2; J96.01 Acute respiratory failure with hypoxia; R65.21 Severe sepsis with septic shock; I50.31 Acute diastolic (congestive) heart failure; J13 Pneumonia due to Streptococcus pneumoniae; N17.9 Acute kidney failure, unspecified; E87.1 Hypo-osmolality and hyponatremia; K52.1 Toxic gastroenteritis and colitis; J44.0 Chronic obstructive pulmonary disease with (acute) lower respiratory infection; E87.20 Acidosis, unspecified; E87.0 Hyperosmolality and hypernatremia; Z66 Do not resuscitate; I48.0 Paroxysmal atrial fibrillation; R13.12 Dysphagia, oropharyngeal phase; E87.6 Hypokalemia; E83.39 Other disorders of phosphorus metabolism; T36.95XA Adverse effect of unspecified systemic antibiotic, initial encounter; N40.1 Benign prostatic hyperplasia with lower urinary tract symptoms; R33.8 Other retention of urine; Z88.8 Allergy status to other drugs, medicaments and biological substances; Z98.890 Other specified postprocedural states; Z87.891 Personal history of nicotine dependence; Z11.52 Encounter for screening for COVID-19; Z79.51 Long term (current) use of inhaled steroids; Z79.01 Long term (current) use of anticoagulants; Z79.899 Other long term (current) drug therapy; Z99.81 Dependence on supplemental oxygen
CPT/HCPCS: 31500; 31720; 36415; 36556; 51700; 51702; 71045; 76770; 80048; 80053; 80069; 81001; 83605; 83735; 83880; 84100; 84484; 85014; 85018; 85025; 85027; 85049; 85520; 85610; 85730; 87040; 87070; 87086; 87186; 87205; 87430; 87449; 87493; 87633; 92526; 92610; 93005; 93010; 93306; 94002; 94003; 94640; 94660; 94664; 94760; 94762; 96361; 96365; 96367; 96375; 97110; 97112; 97116; 97162; 97166; 97530; 97535; 99285-25; A9270; C1751; J0456; J0692; J0696; J1644; J1885; J1940; J2060; J2270; J2371; J2704; J2920; J3010; J3480; J7030; J7040; J7050; J7060; U0002

== ENCOUNTER 2023-10-01 16:31 | Observation (INO) | payer OTHER ==
[~2023-10-01] VITALS: Ht 190.5 cm; Wt 95.9 kg
[~2023-10-01 16:31] MED LIST changes: +ATOR40TA PO; +CYCL10 PO; +DILT60 PO; +DOCU100 PO; +DULO30 PO; +ELIQUIS5 M2 PO; +FAMO40 PO; +GABA300 PO; +IPRAT-ALBUT 0.5-3 ML INH; +MELA3 PO; +TAMS.4ER PO; +XARELTO20 MG PO
[2023-10-01 17:08] LABS: BASOPHILS PERCENT AUTO 1 % (0-2); EOSINOPHILS ABSOLUTE AUTO 0.91 K/mm3 (0.00-0.68); EOSINOPHILS PERCENT AUTO 10 % (0-6); Hematocrit 38.2 % (37.0-53.0); Hemoglobin 12.5 g/dL (13.5-17.5); IMMATURE GRAN ABSOLUTE AUTO 0.02 K/mm3 (0.00-0.10); IMMATURE GRAN PERCENT AUTO 0 % (0-1); LYMPHOCYTES PERCENT AUTO 24 % (21-46); MONOCYTES ABSOLUTE AUTO 0.93 K/mm3 (0.16-1.47); MONOCYTES PERCENT AUTO 10 % (4-13); Mean Corpuscular HGB 30.5 pg (26.0-34.0); Mean Corpuscular HGB Conc 32.7 g/dL (31.5-36.5); Mean Corpuscular Volume 93 fL (80-100); Mean Platelet Volume 9.7 fL (9.1-12.4); NEUTROPHILS ABSOLUTE AUTO 5.17 K/mm3 (1.96-9.15); NEUTROPHILS PERCENT AUTO 55 % (41-73); Platelet Count 250 K/mm3 (150-400); RDW Coefficient Variation 14.4 % (11.7-14.2); RDW Standard Deviation 48.9 fL (35.1-46.3); White Blood Cell Count 9.33 K/mm3 (4.00-11.30)
[2023-10-01 17:22] LABS: Albumin, Blood 3.2 g/dL (3.4-5.0); Albumin/Globulin Ratio 0.9 (0.8-1.8); Bilirubin, Total 0.5 mg/dL (0.1-1.0); Bun/Creatinine Ratio 20.2 (12.0-20.0); Calcium, Blood 8.6 mg/dL (8.5-10.1); Creatinine, Blood 0.89 mg/dL (0.60-1.20); Globulin, Blood 3.6 g/dL (2.2-4.0); Potassium, Blood 5.1 mmol/L (3.5-5.5); Total Protein, Blood 6.8 g/dL (6.4-8.2)
[2023-10-01] MEDS ORDERED: METO25ER (17:42)
[2023-10-01 19:52] LABS: Influenza A, PCR NEGATIVE (NEGATIVE); Influenza B, PCR NEGATIVE (NEGATIVE); Resp Syncytial Virus, PCR NEGATIVE (NEGATIVE); SARS-Cov-2 (COVID-19) PCR, MMC NEGATIVE (NEGATIVE)
[2023-10-01] MEDS ORDERED: MICONAZOLE NITR85 GM TOP (20:12)
[2023-10-01] MEDS ORDERED: DILT180 PO (20:12)
[2023-10-01] MEDS ORDERED: METO25 PO (21:07)
[2023-10-01] MEDS ORDERED: ELIQUIS5 M2 PO (21:07)
[2023-10-01 21:09] VITALS: BP 121/74
--- NOTE | 2023-10-02 00:28 | NUR ---
PT INDEPDNET IN ROOM STAEDY TGAIT UNASSISTED. ADMIT TO MEDICAL FOR OBSERVATION R/T SYNCOPLE EPISODES, PT A&OX4 VERY TALKITIVE ANSWERS APPROPERIATELY, PT ON TELE AFIB 97, PT C/O SOB POX97% HX COPD NEB ORDERED IN AM, PT GIVEN INCENTIVESPIROMETER AND EDUCATED ON IT USE PT STATES "A LESSON IN FUTILITY". SKIN ASSESSMENT NONREMARKABLE PT REPORTS SCAB ON R [facility] IS MONITORING, PT REFUSED FAMOTIDINE AND GABAPENTIN REQUESTED TYLENOL PM HOSPITALIST / CN NOTIFIED PT WAS ASLEEP WITH AUDIBLE NON OBSTRUCTED SNORE RESTING COMFORTBALY NO S/SX OF DISTRESS, CALL ROBLES WITHIN REACH,WILL CONTINUE TO MONITOR.
[2023-10-02 02:54] VITALS: BP 146/95
--- NOTE | 2023-10-02 03:45 | NUR ---
ASSUMED CARE OF PT.
--- NOTE | 2023-10-02 04:33 | NUR ---
SHIFT SUMMARY: ER ADMIT. [facility] PT. A/O. AMBULATES INDEPENDENTLY, STANDBY TO MONITOR FOR UNSTEADINESS OR DIZZINESS. NO REPORT OF DIZZINESS WHEN AMBULATING TO THE BATHROOM. NO CHEST PAIN. OCCASIONAL DRY, HARSH COUGH NOTED. RT TREATMENTS ORDERED AND TESSALON FOR COUGH AND SOB. NO ACUTE CHANGES. WILL CONTINUE TO PROVIDE CARE UNTIL SHIFT REPORT TO ONCOMING NURSE.
[2023-10-02 07:48] VITALS: BP 124/82
[2023-10-02] MEDS ORDERED: METO25ER PO (11:45)
[2023-10-02 11:50] LABS: BASOPHILS PERCENT AUTO 1 % (0-2); EOSINOPHILS PERCENT AUTO 11 % (0-6); Hematocrit 38.2 % (37.0-53.0); Hemoglobin 12.5 g/dL (13.5-17.5); IMMATURE GRAN ABSOLUTE AUTO 0.01 K/mm3 (0.00-0.10); IMMATURE GRAN PERCENT AUTO 0 % (0-1); LYMPHOCYTES ABSOLUTE AUTO 1.79 K/mm3 (0.84-5.20); LYMPHOCYTES PERCENT AUTO 23 % (21-46); MONOCYTES ABSOLUTE AUTO 0.74 K/mm3 (0.16-1.47); MONOCYTES PERCENT AUTO 9 % (4-13); Mean Corpuscular HGB 29.8 pg (26.0-34.0); Mean Corpuscular HGB Conc 32.7 g/dL (31.5-36.5); Mean Corpuscular Volume 91 fL (80-100); Mean Platelet Volume 9.1 fL (9.1-12.4); NEUTROPHILS ABSOLUTE AUTO 4.37 K/mm3 (1.96-9.15); NEUTROPHILS PERCENT AUTO 55 % (41-73); Platelet Count 259 K/mm3 (150-400); RDW Coefficient Variation 14.2 % (11.7-14.2); RDW Standard Deviation 47.7 fL (35.1-46.3); White Blood Cell Count 7.91 K/mm3 (4.00-11.30)
[2023-10-02 12:18] LABS: Magnesium, Blood 1.8 mg/dL (1.6-2.4)
[2023-10-02 12:19] LABS: Bun/Creatinine Ratio 19.3 (12.0-20.0); Calcium, Blood 8.5 mg/dL (8.5-10.1); Creatinine, Blood 0.88 mg/dL (0.60-1.20); Potassium, Blood 3.9 mmol/L (3.5-5.5)
--- NOTE | 2023-10-02 15:58 | NUR ---
DISCHARGE NOTE PT DISCHARGED TO HOME, PICKED UP BY A FRIEND. IV REMOVED, TELE RETURNED. PERSONAL BELONGINGS RETURNED. MEDICATIONS FAXED TO THE PHARMACY OF THEIR CHOICE. DISCHARGE EDUCATION AND INFORMATION PROVIDED TO THE PT.
[2023-10-03] MEDS ORDERED: GUAI600T33 PO (16:13)
[2023-10-03] MEDS ORDERED: ACET325 PO (16:14)
[2023-10-03] MEDS ORDERED: Aspir 8181 MG PO (16:15)
[2023-10-03] MEDS ORDERED: FERSU300 PO (16:15)
[2023-10-03] MEDS ORDERED: ZYRTEC10 M2 PO (16:17)
[2023-10-03] MEDS ORDERED: Acerola C500 MG PO (16:18)
[2023-10-03] MEDS ORDERED: ELIQUIS5 M2 PO (16:21)
== END 2023-10-02 15:45 | disposition home or self-care (01) ==
LOC: ER 16:31 → MEDS 16:32
PROVIDERS: Physician Assistant; Student in an Organized Health Care Education/Training Program; ADMIT Internal Medicine
DX: R55 Syncope and collapse (principal); J44.9 Chronic obstructive pulmonary disease, unspecified; N40.0 Benign prostatic hyperplasia without lower urinary tract symptoms; Z79.01 Long term (current) use of anticoagulants; Z20.822 Contact with and (suspected) exposure to COVID-19; I48.0 Paroxysmal atrial fibrillation; E78.2 Mixed hyperlipidemia; K21.9 Gastro-esophageal reflux disease without esophagitis
CPT/HCPCS: 0241U; 36415; 80048; 80053; 83690; 83735; 83880; 84484; 85025; 93005; 93010; 93242; 94640; 94664; 94760; 99285-25; A9270; G0378; J7030

== ENCOUNTER 2023-10-03 12:51 | Inpatient (IN) | payer OTHER ==
[~2023-10-03] VITALS: Ht 193 cm; Wt 119.8 kg
[~2023-10-03 12:51] MED LIST changes: +DILT180 PO; +METO25 PO; +METO25ER; +METO25ER PO; +MICONAZOLE NITR85 GM TOP
[2023-10-03 13:52] LABS: BASOPHILS PERCENT AUTO 1 % (0-2); EOSINOPHILS ABSOLUTE AUTO 0.79 K/mm3 (0.00-0.68); EOSINOPHILS PERCENT AUTO 9 % (0-6); Hematocrit 39.6 % (37.0-53.0); IMMATURE GRAN ABSOLUTE AUTO 0.02 K/mm3 (0.00-0.10); IMMATURE GRAN PERCENT AUTO 0 % (0-1); LYMPHOCYTES ABSOLUTE AUTO 1.65 K/mm3 (0.84-5.20); LYMPHOCYTES PERCENT AUTO 18 % (21-46); MONOCYTES ABSOLUTE AUTO 0.68 K/mm3 (0.16-1.47); MONOCYTES PERCENT AUTO 7 % (4-13); Mean Corpuscular HGB 30.4 pg (26.0-34.0); Mean Corpuscular HGB Conc 32.8 g/dL (31.5-36.5); Mean Corpuscular Volume 93 fL (80-100); NEUTROPHILS ABSOLUTE AUTO 5.98 K/mm3 (1.96-9.15); NEUTROPHILS PERCENT AUTO 65 % (41-73); Platelet Count 273 K/mm3 (150-400); RDW Coefficient Variation 14.3 % (11.7-14.2); RDW Standard Deviation 48.4 fL (35.1-46.3); Red Blood Cell Count 4.28 M/mm3 (4.30-5.90); White Blood Cell Count 9.22 K/mm3 (4.00-11.30)
[2023-10-03 14:14] LABS: Albumin, Blood 3.5 g/dL (3.4-5.0); Bilirubin, Total 0.8 mg/dL (0.1-1.0); Bun/Creatinine Ratio 16.1 (12.0-20.0); Calcium, Blood 8.5 mg/dL (8.5-10.1); Creatinine, Blood 0.99 mg/dL (0.60-1.20); Globulin, Blood 3.6 g/dL (2.2-4.0); Potassium, Blood 3.9 mmol/L (3.5-5.5); Total Protein, Blood 7.1 g/dL (6.4-8.2)
[2023-10-03 15:17] LABS: Magnesium, Blood 1.7 mg/dL (1.6-2.4)
[2023-10-03 15:36] LABS: Thyroid Stimulating Hormone 0.619 uIU/mL (0.360-4.800)
[2023-10-03] MEDS ORDERED: GUAI600T33 PO (16:13)
[2023-10-03] MEDS ORDERED: ACET325 PO (16:14)
[2023-10-03] MEDS ORDERED: FERSU300 PO (16:15)
[2023-10-03] MEDS ORDERED: Aspir 8181 MG PO (16:15)
[2023-10-03] MEDS ORDERED: ZYRTEC10 M2 PO (16:17)
[2023-10-03] MEDS ORDERED: Acerola C500 MG PO (16:18)
[2023-10-03] MEDS ORDERED: ELIQUIS5 M2 PO (16:21)
--- NOTE | 2023-10-03 17:59 | NUR ---
1755- THIS RN CALLED FOR REPORT FROM ER. SAUMYA OLIVAS TO CALL BACK SOON FOR REPORT.
[2023-10-03 18:45] VITALS: BP 142/82
[2023-10-04] VITALS (7 sets, daily range): BP systolic 116–137; BP diastolic 79–95
--- NOTE | 2023-10-04 05:55 | NUR ---
SHIFT SUMMARYY NOC PT A/O X 4. PLEASANT AND COOPERATIVE WITH CARE. PT HAS NOT HAD ANY C/O OF SYNCOPE THUS FAR. ORTHOSTATIC BP UNREMARKABLE. PT ON TELE RUNNING AFIB IN 'S. PT WAITING ON PROVIDER MORNING ROUNDS FOR POSSIBLE CARDIOLOGY CONSULT. PT HAS ZIO PATCH THAT WAS PLACED ON 10/02/23. PT MAY DISCHARGE TODAY WITH FOLLOW UP WITH CARDIOLOGY OUTPATIENT. PT IS CURRENTLY RESTING WITH BED IN LOWEST POSITION, AND CALL LIGHT WITHIN REACH.
[2023-10-04 06:40] LABS: BASOPHILS PERCENT AUTO 1 % (0-2); EOSINOPHILS ABSOLUTE AUTO 1.28 K/mm3 (0.00-0.68); EOSINOPHILS PERCENT AUTO 15 % (0-6); Hematocrit 35.9 % (37.0-53.0); Hemoglobin 11.9 g/dL (13.5-17.5); IMMATURE GRAN ABSOLUTE AUTO 0.01 K/mm3 (0.00-0.10); IMMATURE GRAN PERCENT AUTO 0 % (0-1); LYMPHOCYTES PERCENT AUTO 20 % (21-46); MONOCYTES ABSOLUTE AUTO 0.93 K/mm3 (0.16-1.47); MONOCYTES PERCENT AUTO 11 % (4-13); Mean Corpuscular HGB 30.1 pg (26.0-34.0); Mean Corpuscular HGB Conc 33.1 g/dL (31.5-36.5); Mean Corpuscular Volume 91 fL (80-100); Mean Platelet Volume 9.2 fL (9.1-12.4); NEUTROPHILS ABSOLUTE AUTO 4.32 K/mm3 (1.96-9.15); NEUTROPHILS PERCENT AUTO 52 % (41-73); Platelet Count 264 K/mm3 (150-400); RDW Coefficient Variation 14.3 % (11.7-14.2); RDW Standard Deviation 47.8 fL (35.1-46.3); Red Blood Cell Count 3.96 M/mm3 (4.30-5.90); White Blood Cell Count 8.34 K/mm3 (4.00-11.30)
[2023-10-04 07:07] LABS: Albumin/Globulin Ratio 0.9 (0.8-1.8); Bilirubin, Total 0.8 mg/dL (0.1-1.0); Bun/Creatinine Ratio 17.3 (12.0-20.0); Calcium, Blood 8.1 mg/dL (8.5-10.1); Creatinine, Blood 0.93 mg/dL (0.60-1.20); Globulin, Blood 3.2 g/dL (2.2-4.0); Potassium, Blood 3.9 mmol/L (3.5-5.5); Total Protein, Blood 6.2 g/dL (6.4-8.2)
--- NOTE | 2023-10-04 15:10 | NUR ---
1345- PT HAD AN "EPISODE" OF PASSING OUT. RN NOTIFIED DR. PRICE AND MAY. VITALS TAKEN. WNL. PT SWEATY, TIRED, AND PALE AFTER EPISODE. AWARE.
--- NOTE | 2023-10-04 18:39 | NUR ---
SHIFT SUMMARY RESUMED CARE LATE THIS SHIFT. NO EPISODES OF SYNCOPE OR LOSS OF CONCIOUSNESS FOR THIS RN. ZIO PATCH IN PLACE, RIGHT UPPER CHEST. DR PRICE OKAYED 0.5 LITERS OF O2 NASAL CANNULA, PATIENT STATES HE WEARS OXYGEN AT HOME FOR SYMPTOM MANAGEMENT REGARDLESS OF SATS, STATES SINCE APPLICATION HE IS FEELING BETTER. SATS WERE 94% PRIOR. WILL CONITNUE TO MONITOR
[2023-10-05 03:31] VITALS: BP 134/84
--- NOTE | 2023-10-05 05:09 | NUR ---
SHIFT SUMMARY PT A/O X 4. PLEASANT AND COOPERATIVE WITH CARE. PT HAS NOT REPORTED ANY EPISODES OF SYNCOPE THUS FAR. PT REPORTS BREATHING TREATMENTS ARE HELPING WITH REMOVING EXCESS SECRETIONS. PT ON O2 1L/NC PRN FOR COMFORT. ON TELE RUNNING AFIB IN 90'S-100'S. PT STARTED ON PREDNISONE YESTERDAY FOR AIRWAY INFLAMMATION. PT IS CURRENTLY RESTING WITH BED IN LOWEST POSITION, AND CALL LIGHT WITHIN REACH.
[2023-10-05 06:11] LABS: BASOPHILS ABSOLUTE AUTO 0.04 K/mm3 (0.00-0.23); BASOPHILS PERCENT AUTO 0 % (0-2); EOSINOPHILS ABSOLUTE AUTO 0.01 K/mm3 (0.00-0.68); EOSINOPHILS PERCENT AUTO 0 % (0-6); Hemoglobin 13.1 g/dL (13.5-17.5); IMMATURE GRAN ABSOLUTE AUTO 0.03 K/mm3 (0.00-0.10); IMMATURE GRAN PERCENT AUTO 0 % (0-1); LYMPHOCYTES ABSOLUTE AUTO 1.17 K/mm3 (0.84-5.20); LYMPHOCYTES PERCENT AUTO 12 % (21-46); MONOCYTES ABSOLUTE AUTO 0.76 K/mm3 (0.16-1.47); MONOCYTES PERCENT AUTO 8 % (4-13); Mean Corpuscular HGB 29.7 pg (26.0-34.0); Mean Corpuscular HGB Conc 32.8 g/dL (31.5-36.5); Mean Corpuscular Volume 91 fL (80-100); Mean Platelet Volume 9.5 fL (9.1-12.4); NEUTROPHILS ABSOLUTE AUTO 7.79 K/mm3 (1.96-9.15); NEUTROPHILS PERCENT AUTO 80 % (41-73); Platelet Count 295 K/mm3 (150-400); RDW Coefficient Variation 14.2 % (11.7-14.2); RDW Standard Deviation 47.8 fL (35.1-46.3); Red Blood Cell Count 4.41 M/mm3 (4.30-5.90)
[2023-10-05 07:20] VITALS: BP 124/81
[2023-10-05 15:43] VITALS: BP 123/99
--- NOTE | 2023-10-05 18:26 | NUR ---
SHIFT SUMMARY: PT A&O X4. PLEASANT AND COOPERATIVE WITH CARE. SB ASSIST IN ROOM D/T SYNCOPAL EPISODES. PT HAD TWO EPISODES THIS SHIFT. FIRST EPISODE BEGAN AFTER EXTREMELY HARSH COUGH @0800. RT GRETCHEN IN ROOM AT TIME OF EPISODE. SECOND EPISODE OCCURED @1605. RECEIVED CALL FROM TELE THAT PT HR WENT INTO 150'S. IMMEDIATELY GOT URGENT CALL FROM DINESH NICOLE THAT PT WAS HAVING ANOTHER EPISODE. PT STATES THIS HAPPENED WHEN USING FLUTTER VALVE BUT TAKING MANY BREATHS IN A ROW INSTEAD OF SPREAD OUT. PT CURRENTLY ON 1-2L MAINTAINING SATS >92%. DR. ANTONINA OLVERA ARRIVED TO ROOM THIS AFTERNOON TO ASSESS PT. DR. SARKAR NOTE IN CHART. CALL LIGHT IN REACH. BED IN LOWEST POSITION.
[2023-10-05 19:34] VITALS: BP 108/75
--- NOTE | 2023-10-05 21:43 | NUR ---
DURING CHANGE OF SHIFT BEDSIDE REPORT OFF GOING RN YESI AND I WERE TALKING TO PT ABOUT SYNCOPE EPISODE PRIOR IN DAY WHEN PT ALL OF SUDDEN STARTING COUGHING FORCEFULLY, THEN SHOOK FOR A SECOND, TURNED BRIGHT RED AND PASSED OUT. PT SYNCOPE EPISODE LASTED APPROXIMATELY 5 SECS AND PT WAS EASILY WOKEN UP WITH A SLIGHT STERNAL RUB. VSS AFTER EPISODE AND NO CALL FROM TELE FOR ELEVATED HR. MD'S ARE AWARE OF PT CONDITION. DR ANTONINA OLVERA IS FOLLOWING PT. RT CALLED FOR BREATHING TREATMENT AND RT EDUCATED PT ON BREATHING TECHNIQUES TO CALM BREATHING PATTERN. TESSALON JIMENEZ AND MUCINEX GIVEN FOR COUGH. WILL CONTINUE TO MONITOR PT.
[2023-10-06 03:29] VITALS: BP 111/97
--- NOTE | 2023-10-06 05:51 | NUR ---
SHIFT SUMMARY PT A/O X 4. PLEASANT AND COOPERATIVE WITH CARE. PT HAD EPISODE OF SYNCOPE IN MIDDLE OF BEDSIDE SHIFT CHANGE REPORT. VSS. ANTI PERTUSSIVE RX GIVEN TO SUPRESS COUGH. RT EDUCATED PT ON BREATHING TECHNIQUES TO AVOID STRAINING TOO HARD. PT ON O2 2L/NC PRN FOR COMFORT. ON TELE RUNNING AFIB IN 80'S-90'S. PT IS CURRENTLY RESTING WITH BED IN LOWEST POSITION, AND CALL LIGHT WITHIN REACH.
[2023-10-06 07:13] VITALS: BP 129/78
--- NOTE | 2023-10-06 16:00 | NUR ---
SHIFT SUMMARY: PT A&O X4. PLEASANT AND COOPERATIVE WITH CARE. ROBITUSSIN AND TESSALON JIMENEZ GIVEN WITH AM MEDS TO REDUCE COUGH SENSATION. PT HAS NOT HAD ANY EPISODES SO FAR THIS SHIFT. RECEIVED ONE CALL FROM TELE STATING PT HR ELEVATED INTO 150'S. ENTERED ROOM AFTER EVENT AND VISUALIZED PT RESTING IN BED W/O COMPLAINTS. ON 2L NC PRN FOR COMFORT. PT CURRENTLY RESTING COMFORTABLY IN BED WITH SO AT BEDSIDE. CALL LIGHT IN REACH. BED IN LOWEST POSITION.
[2023-10-06 16:12] VITALS: BP 150/99
[2023-10-06 19:59] VITALS: BP 104/63
[2023-10-07 04:29] VITALS: BP 129/100
[2023-10-07 04:30] VITALS: BP 135/98
--- NOTE | 2023-10-07 04:47 | NUR ---
SHIFT SUMMARY PT A&OX4 AND ANSWERS QUESTIONS APPROPRIATELY. PT REQUESTED RT TREATMENT WHEN HE FELT THE NEED DURING SHIFT AND NO SYNCOPAL EPISODES OCCURED DURING SHIFT. PT RECEIVED SCHEDULED AND PRN MEDICATION FOR COUGH, INTERVENTION WAS SUCCESSFUL. PT WAS ABLE TO SLEEP THROUGH PART OF SHIFT. NO ACUTE EVENTS OCCURED. VSS. PT LEFT IN A POSITION OF SAFETY WITH FALL PRECAUTIONS IN PLACE AND CALL LIGHT IN REACH.
[2023-10-07 07:38] VITALS: BP 130/84
[2023-10-07] MEDS ORDERED: BENZ100A PO (11:34)
[2023-10-07] MEDS ORDERED: Q-Tussin100 MG/5 M PO (11:37)
[2023-10-07] MEDS ORDERED: MOME220I INH (11:38)
[2023-10-07] MEDS ORDERED: DOCU100 PO (11:38)
[2023-10-07] MEDS ORDERED: PRED20 PO (11:39)
[2023-10-07] MEDS ORDERED: TIOT18 INH (11:40)
--- NOTE | 2023-10-07 13:57 | NUR ---
DISCHARGE: PT D/C @1530 VIA WHEELCHAIR WITH SIGNIFICANT OTHER. RX MEDICATIONS FAXED TO [facility]. PT TO SCHEDULE OUTPT PULMONOLOGY APT WITHIN ONE WEEK. NO EPISODES THIS SHIFT. PT GIVEN TESSALON AND ROBITUSSIN PRIOR TO D/C. IV IN RAC REMOVED W/O COMPLICATIONS. ALL BELONGINGS SENT WITH PT.
== END 2023-10-07 13:31 | disposition home or self-care (01) | DRG 816 ==
LOC: ER 12:51 → MEDS 15:52
PROVIDERS: Family Medicine; Student in an Organized Health Care Education/Training Program; ADMIT Student in an Organized Health Care Education/Training Program
DX: D72.10 Eosinophilia, unspecified (principal); R05.8 Other specified cough; J44.9 Chronic obstructive pulmonary disease, unspecified; R94.31 Abnormal electrocardiogram [ECG] [EKG]; I48.0 Paroxysmal atrial fibrillation; D64.9 Anemia, unspecified; N40.0 Benign prostatic hyperplasia without lower urinary tract symptoms; Z87.891 Personal history of nicotine dependence; Z79.82 Long term (current) use of aspirin; Z79.01 Long term (current) use of anticoagulants; Z11.52 Encounter for screening for COVID-19
CPT/HCPCS: 36415; 70450; 71046; 80053; 83735; 84443; 85025; 93005; 93010; 94640; 94664; 94760; 94761; 96365; 96366; 99285-25; A9270; G0378; J3475; J7512

== ENCOUNTER 2024-03-25 14:57 | Emergency (ER) | payer OTHER ==
[~2024-03-25] VITALS: Ht 190.5 cm; Wt 132.9 kg
[~2024-03-25 14:57] MED LIST changes: +ACET325 PO; +Acerola C500 MG PO; +Aspir 8181 MG PO; +BENZ100A PO; +FERSU300 PO; +GUAI600T33 PO; +MOME220I INH; +PRED20 PO; +Q-Tussin100 MG/5 M PO; +TIOT18 INH; +ZYRTEC10 M2 PO
[2024-03-25 16:27] LABS: BASOPHILS ABSOLUTE AUTO 0.05 K/mm3 (0.00-0.23); BASOPHILS PERCENT AUTO 1 % (0-2); EOSINOPHILS ABSOLUTE AUTO 0.38 K/mm3 (0.00-0.68); EOSINOPHILS PERCENT AUTO 5 % (0-6); Hematocrit 43.7 % (37.0-53.0); Hemoglobin 14.1 g/dL (13.5-17.5); IMMATURE GRAN ABSOLUTE AUTO 0.02 K/mm3 (0.00-0.10); IMMATURE GRAN PERCENT AUTO 0 % (0-1); LYMPHOCYTES ABSOLUTE AUTO 1.44 K/mm3 (0.84-5.20); LYMPHOCYTES PERCENT AUTO 19 % (21-46); MONOCYTES ABSOLUTE AUTO 0.79 K/mm3 (0.16-1.47); MONOCYTES PERCENT AUTO 10 % (4-13); Mean Corpuscular HGB 29.7 pg (26.0-34.0); Mean Corpuscular HGB Conc 32.3 g/dL (31.5-36.5); Mean Corpuscular Volume 92 fL (80-100); Mean Platelet Volume 9.4 fL (9.1-12.4); NEUTROPHILS ABSOLUTE AUTO 4.88 K/mm3 (1.96-9.15); NEUTROPHILS PERCENT AUTO 65 % (41-73); Platelet Count 261 K/mm3 (150-400); RDW Coefficient Variation 13.3 % (11.7-14.2); RDW Standard Deviation 45.3 fL (35.1-46.3); Red Blood Cell Count 4.74 M/mm3 (4.30-5.90); White Blood Cell Count 7.56 K/mm3 (4.00-11.30)
[2024-03-25 16:46] LABS: Albumin, Blood 3.5 g/dL (3.4-5.0); Albumin/Globulin Ratio 1.1 (0.8-1.8); Bilirubin, Total 0.9 mg/dL (0.1-1.0); Bun/Creatinine Ratio 20.4 (12.0-20.0); Calcium, Blood 8.5 mg/dL (8.5-10.1); Creatinine, Blood 1.13 mg/dL (0.60-1.20); Globulin, Blood 3.3 g/dL (2.2-4.0); Potassium, Blood 4.2 mmol/L (3.5-5.5); Total Protein, Blood 6.8 g/dL (6.4-8.2)
[2024-03-25 18:00] VITALS: BP 152/107
== END 2024-03-25 18:13 | disposition home or self-care (01) ==
LOC: ER 14:57
PROVIDERS: Student in an Organized Health Care Education/Training Program
DX: S01.112A Laceration without foreign body of left eyelid and periocular area, initial encounter (principal); W01.198A Fall on same level from slipping, tripping and stumbling with subsequent striking against other object, initial encounter; Z79.899 Other long term (current) drug therapy; Z79.82 Long term (current) use of aspirin
CPT/HCPCS: 12013; 70450; 80053; 85025; 93005; 93010; 99284-25

== ENCOUNTER 2024-03-27 10:53 | Emergency (ER) | payer OTHER ==
[~2024-03-27] VITALS: Ht 190.5 cm; Wt 132.4 kg
[2024-03-27 11:27] VITALS: BP 121/79
== END 2024-03-27 11:34 | disposition home or self-care (01) ==
LOC: ER 10:53
DX: S00.12XA Contusion of left eyelid and periocular area, initial encounter (principal); W22.8XXA Striking against or struck by other objects, initial encounter; J44.9 Chronic obstructive pulmonary disease, unspecified; I48.91 Unspecified atrial fibrillation; Z87.891 Personal history of nicotine dependence; Z79.82 Long term (current) use of aspirin; Z79.01 Long term (current) use of anticoagulants; Z79.899 Other long term (current) drug therapy
CPT/HCPCS: 99282

== ENCOUNTER 2024-08-13 12:09 | Emergency (ER) | payer OTHER ==
[~2024-08-13] VITALS: Ht 190.5 cm; Wt 132.4 kg
[2024-08-13 13:14] LABS: BASOPHILS ABSOLUTE AUTO 0.05 K/mm3 (0.00-0.23); BASOPHILS PERCENT AUTO 1 % (0-2); EOSINOPHILS ABSOLUTE AUTO 0.42 K/mm3 (0.00-0.68); EOSINOPHILS PERCENT AUTO 5 % (0-6); Hematocrit 44.7 % (37.0-53.0); IMMATURE GRAN ABSOLUTE AUTO 0.03 K/mm3 (0.00-0.10); IMMATURE GRAN PERCENT AUTO 0 % (0-1); LYMPHOCYTES PERCENT AUTO 18 % (21-46); MONOCYTES ABSOLUTE AUTO 1.04 K/mm3 (0.16-1.47); MONOCYTES PERCENT AUTO 11 % (4-13); Mean Corpuscular HGB 30.6 pg (26.0-34.0); Mean Corpuscular HGB Conc 33.6 g/dL (31.5-36.5); Mean Corpuscular Volume 91 fL (80-100); Mean Platelet Volume 9.3 fL (9.1-12.4); NEUTROPHILS ABSOLUTE AUTO 6.15 K/mm3 (1.96-9.15); NEUTROPHILS PERCENT AUTO 66 % (41-73); Platelet Count 310 K/mm3 (150-400); RDW Standard Deviation 43.8 fL (35.1-46.3); White Blood Cell Count 9.39 K/mm3 (4.00-11.30)
[2024-08-13 13:34] LABS: Albumin, Blood 3.3 g/dL (3.4-5.0); Albumin/Globulin Ratio 0.8 (0.8-1.8); Bilirubin, Total 1.6 mg/dL (0.1-1.0); Bun/Creatinine Ratio 19.2 (12.0-20.0); Calcium, Blood 8.6 mg/dL (8.5-10.1); Creatinine, Blood 1.04 mg/dL (0.60-1.20); Globulin, Blood 3.9 g/dL (2.2-4.0); Potassium, Blood 4.1 mmol/L (3.5-5.5); Total Protein, Blood 7.2 g/dL (6.4-8.2)
[2024-08-13 17:09] VITALS: BP 123/88
== END 2024-08-13 17:41 | disposition home or self-care (01) ==
LOC: ER 12:09
PROVIDERS: Physician Assistant
DX: S86.912A Strain of unspecified muscle(s) and tendon(s) at lower leg level, left leg, initial encounter (principal); W19.XXXA Unspecified fall, initial encounter; Z91.040 Latex allergy status; Z79.899 Other long term (current) drug therapy; Z79.82 Long term (current) use of aspirin; Z79.52 Long term (current) use of systemic steroids; I48.91 Unspecified atrial fibrillation; J44.9 Chronic obstructive pulmonary disease, unspecified; Z87.891 Personal history of nicotine dependence
CPT/HCPCS: 73562-LT; 80053; 85025; 99284-25

== ENCOUNTER 2024-08-29 09:13 | Inpatient (IN) | payer OTHER ==
[~2024-08-29] VITALS: Ht 193 cm; Wt 135.9 kg
[~2024-08-29 09:13] MED LIST changes: +ATOR10 PO; -ATOR40TA PO
[2024-08-29] MEDS ORDERED: Albuterol 2.5 MG/3 ML VIAL INH SCH (09:20)
[2024-08-29] MEDS ORDERED: Magnesium Sulf 2 GM/Water 50ML 50 ML IV ONE (09:20)
[2024-08-29 09:29] LABS: Base Excess Venous 1.1 mmol/L; Bicarbonate Venous 23.1 mmol/L (24.0-30.0); PCO2 Venous 51.4 mmHg (38-42); pH Blood Venous 7.33 (7.34-7.37)
[2024-08-29 09:38] LABS: BASOPHILS ABSOLUTE AUTO 0.06 K/mm3 (0.00-0.23); BASOPHILS PERCENT AUTO 0 % (0-2); EOSINOPHILS ABSOLUTE AUTO 0.37 K/mm3 (0.00-0.68); EOSINOPHILS PERCENT AUTO 2 % (0-6); Hematocrit 44.4 % (37.0-53.0); Hemoglobin 14.6 g/dL (13.5-17.5); IMMATURE GRAN ABSOLUTE AUTO 0.07 K/mm3 (0.00-0.10); IMMATURE GRAN PERCENT AUTO 0 % (0-1); LYMPHOCYTES PERCENT AUTO 9 % (21-46); MONOCYTES ABSOLUTE AUTO 0.72 K/mm3 (0.16-1.47); MONOCYTES PERCENT AUTO 4 % (4-13); Mean Corpuscular HGB 30.8 pg (26.0-34.0); Mean Corpuscular HGB Conc 32.9 g/dL (31.5-36.5); Mean Corpuscular Volume 94 fL (80-100); Mean Platelet Volume 9.4 fL (9.1-12.4); NEUTROPHILS ABSOLUTE AUTO 14.54 K/mm3 (1.96-9.15); NEUTROPHILS PERCENT AUTO 84 % (41-73); Platelet Count 343 K/mm3 (150-400); RDW Coefficient Variation 13.2 % (11.7-14.2); RDW Standard Deviation 45.1 fL (35.1-46.3); Red Blood Cell Count 4.74 M/mm3 (4.30-5.90); White Blood Cell Count 17.26 K/mm3 (4.00-11.30)
[2024-08-29] MEDS ORDERED: Azithromycin 250 MG Tab PO ONE (09:45)
[2024-08-29] MEDS ORDERED: CefTRIAXone Sodium 2,000 MG in NS 100 ML IV ONE (09:45)
[2024-08-29 09:54] LABS: Albumin, Blood 3.4 g/dL (3.4-5.0); Albumin/Globulin Ratio 0.9 (0.8-1.8); Bilirubin, Total 1.1 mg/dL (0.1-1.0); Bun/Creatinine Ratio 16.2 (12.0-20.0); Calcium, Blood 8.5 mg/dL (8.5-10.1); Creatinine, Blood 1.05 mg/dL (0.60-1.20); Globulin, Blood 3.9 g/dL (2.2-4.0); Magnesium, Blood 1.5 mg/dL (1.6-2.4); Potassium, Blood 4.2 mmol/L (3.5-5.5); Total Protein, Blood 7.3 g/dL (6.4-8.2)
[2024-08-29 10:20] LABS: Influenza A, PCR NEGATIVE (NEGATIVE); Influenza B, PCR NEGATIVE (NEGATIVE); Resp Syncytial Virus, PCR NEGATIVE (NEGATIVE); SARS-Cov-2 (COVID-19) PCR, MMC NEGATIVE (NEGATIVE)
[2024-08-29] MEDS ORDERED: NS 1,000 ML IV SCH (10:30)
[2024-08-29] MEDS ORDERED: Magnesium Hydroxide Conc 10 ML UDC PO PRN (14:30)
[2024-08-29] MEDS ORDERED: Bisacodyl 10 MG Supp PR PRN (14:30)
[2024-08-29] MEDS ORDERED: FLU VACC TS2024-25(6MOS UP)/PF 45 MCG/0.5 ML SYRINGE IM SCH (14:35)
[2024-08-29] MEDS ORDERED: Ipratropium/Albuterol SulF 2.5-0.5MG/3 ML Amp INH PRN (14:40)
[2024-08-29] MEDS ORDERED: Acetaminophen 325 MG TABLET PO PRN (14:55)
[2024-08-29] MEDS ORDERED: Mometasone Furoate Inhaler 220 mcg 14 ACT INH SCH (15:00)
[2024-08-29] MEDS ORDERED: Albuterol HFA200 ACT/6.7 GM INH INH PRN (15:05)
[2024-08-29] MEDS ORDERED: OxyCODONE HCL 5 MG TAB PO PRN (16:50)
[2024-08-29] MEDS ORDERED: MethylPREDNISolone Sod Succ 125 MG Vial IV SCH (18:00)
[2024-08-29 18:08] VITALS: BP 101/61
--- NOTE | 2024-08-29 18:51 | NUR ---
ADMIT NOTE PT ARRIVED TO PCU FROM ED VIA ED WHEELCHAIR AT APPROX 1745. PT AMBULATED FROM ED WHEELCHAIR TO RECLINER INDEPENDENTLY. PT ALERT AND ORIENTED. SP02>90% ON RA. SOB W/ EXERTION. TELEMETRY SHOWS AFIB, HR 90'S. BP SOFT. PT BRIEF SOILED UPON ARRIVAL. PT CHANGED INTO HOSPITAL CLOTHING. ASSESSMENT DONE, EVENING MEDICATIONS GIVEN. PT REQUESTED TO CALL THIS RN "". THIS RN EDUCATED PT THAT THAT IS NOT THIS RN'S NAME. PT CONTINUED TO CALL THIS RN . PT COMMENTED TO THIS RN THAT HE "CAN TELL THIS RN EXERCISES BC LEGS ARE DEFINED THAT HE CAN SEE THROUGH PANTS." PT EDUCATED ON BASIC HUMAN APPROPRIATENESS AND COMMENTS WILL NOT BE TOLERATED. CALL LIGHT IN REACH.
[2024-08-29 20:42] VITALS: BP 104/69
[2024-08-29] MEDS ORDERED: Lactobacil 2-S.Thermo-Bifido 1 1 Cap PO SCH (21:00)
[2024-08-29] MEDS ORDERED: Docusate Sodium 100 MG Cap PO SCH (21:00)
[2024-08-29] MEDS ORDERED: Sennosides 8.6 MG Tab PO SCH (21:00)
[2024-08-29] MEDS ORDERED: Apixaban 5 MG Tab PO SCH (21:00)
[2024-08-29] MEDS ORDERED: Melatonin 5 MG Tablet PO PRN (21:13)
[2024-08-30] VITALS (7 sets, daily range): BP systolic 99–121; BP diastolic 64–73
[2024-08-30 04:04] LABS: BASOPHILS ABSOLUTE AUTO 0.02 K/mm3 (0.00-0.23); BASOPHILS PERCENT AUTO 0 % (0-2); EOSINOPHILS PERCENT AUTO 0 % (0-6); Hematocrit 36.8 % (37.0-53.0); Hemoglobin 12.9 g/dL (13.5-17.5); IMMATURE GRAN ABSOLUTE AUTO 0.09 K/mm3 (0.00-0.10); IMMATURE GRAN PERCENT AUTO 1 % (0-1); LYMPHOCYTES ABSOLUTE AUTO 0.54 K/mm3 (0.84-5.20); LYMPHOCYTES PERCENT AUTO 3 % (21-46); MONOCYTES ABSOLUTE AUTO 0.21 K/mm3 (0.16-1.47); MONOCYTES PERCENT AUTO 1 % (4-13); Mean Corpuscular HGB 31.3 pg (26.0-34.0); Mean Corpuscular HGB Conc 35.1 g/dL (31.5-36.5); NEUTROPHILS ABSOLUTE AUTO 17.51 K/mm3 (1.96-9.15); NEUTROPHILS PERCENT AUTO 95 % (41-73); Platelet Count 311 K/mm3 (150-400); RDW Coefficient Variation 13.2 % (11.7-14.2); RDW Standard Deviation 43.6 fL (35.1-46.3); Red Blood Cell Count 4.12 M/mm3 (4.30-5.90); White Blood Cell Count 18.37 K/mm3 (4.00-11.30)
[2024-08-30 04:09] LABS: Mean Corpuscular Volume 89 fL (80-100)
[2024-08-30 04:51] LABS: Albumin, Blood 2.8 g/dL (3.4-5.0); Albumin/Globulin Ratio 0.8 (0.8-1.8); Bilirubin, Total 0.7 mg/dL (0.1-1.0); Bun/Creatinine Ratio 25.6 (12.0-20.0); Calcium, Blood 8.6 mg/dL (8.5-10.1); Creatinine, Blood 0.86 mg/dL (0.60-1.20); Globulin, Blood 3.6 g/dL (2.2-4.0); Magnesium, Blood 1.9 mg/dL (1.6-2.4); Phosphorus, Blood 1.8 mg/dL (2.5-4.9); Potassium, Blood 3.9 mmol/L (3.5-5.5); Total Protein, Blood 6.4 g/dL (6.4-8.2)
--- NOTE | 2024-08-30 06:47 | NUR ---
PT STABLE THROUGHOUT THE SHIFT, VITAL SIGNS REMAIN IN WNL. PT OOB TO RECLINER PER PT REQUESTS FOR MAJORITY OF THE SHIFT. PT AOX4, STEADY ON FEET, SBA. PT USES CALL LIGHT APPROPRIATELY. PT INITIALLY IRRITABLE AT BEGINNING OF SHIFT BUT DID BECOME MORE CALM AND COOPERATIVE SHIFT PROGRESSED. PT ON ROOM AIR ALL NIGHT W/O PROBLEM. PT DOES HAVE SOME MILD EXERTIONAL DYSPNEA THAT QUICKLY RESOLVES ON REST. NO C/O CP/SOB OR MAJOR EVENTS DURING SHIFT. PT DID REQUEST SLEEP AID AND MELATONIN WAS ORDERED BY DR. GALVAN.
[2024-08-30] MEDS ORDERED: STIOLTO RESPIMAT4 G1 INH (08:07)
[2024-08-30] MEDS ORDERED: POTA10T PO (08:07)
[2024-08-30] MEDS ORDERED: DILT120 PO (08:24)
[2024-08-30] MEDS ORDERED: Tamsulosin HCl 0.4 MG Cap PO SCH (09:00)
[2024-08-30] MEDS ORDERED: Ferrous Sulfate 325 MG Tab PO SCH (09:00)
[2024-08-30] MEDS ORDERED: Azithromycin 500 MG in NS 250 ML IV SCH (09:00)
[2024-08-30] MEDS ORDERED: CefTRIAXone Sodium 1,000 MG in NS 100 ML IV SCH (09:00)
[2024-08-30] MEDS ORDERED: dilTIAZem HCL 120 MG CAP.CD PO SCH (09:00)
[2024-08-30] MEDS ORDERED: Atorvastatin 10 MG Tab PO SCH (09:00)
[2024-08-30] MEDS ORDERED: Loratadine 5 MG/5 ML 5MLUDC PO SCH (09:00)
[2024-08-30] MEDS ORDERED: Ascorbic Acid 500 MG Tab PO SCH (09:00)
[2024-08-30] MEDS ORDERED: STIOLTO RESPIMAT INH SCH (09:00)
[2024-08-30] MEDS ORDERED: Ipratropium/Albuterol SulF 2.5-0.5MG/3 ML Amp INH PRN ×2 (09:30)
--- NOTE | 2024-08-30 13:27 | NUR ---
MAD consult order reviewed and discussed with bedside RN. The shift nurse indicates that the principals behavior has improved noteably since the issuance of the request. While the patient reportedly continues to resist / challenge certain aspects of his medical management, he is no longer conducting himself inappropriatey or maladaptively. It was decided that we would posptone administrative involvement for now, and if the patients behavior degrades, or he reverts to problematic forms of conduct, then PCU staff will re-establish communication with my office for additional support. Thank you for this consult. Venancio Gordon, PhD, YASMINE
[2024-08-30] MEDS ORDERED: MethylPREDNISolone Sod Succ 125 MG Vial IV SCH (16:00)
--- NOTE | 2024-08-30 17:39 | NUR ---
SHIFT SUMMARY PATIENT IS A+O X4, VSS B/P IN THE LOW 100S SYSTOLIC. ON ROOM AIR THROUGHTOUT SHIFT SATURATING ABOVE 90% ON CONTINOUS PULSE OX. PATIENT IS MEDICAL NO TELE. SBA TO THE BATHROOM, ASSISTANCE WITH LINE MANAGMENT. PATIENT REMOVED DRESSING THAT WAS ON LEFT KNEE FROM REVISTION HE RECIEVED ON 08/05. PHOTO TAKEN OF RIGHT SIDE TOP OF BUTTOCK AND PLACED IN CHART TODAY. PATIENT IS CURRENTLY UP TO CHAIR FOR MEAL. CALL LIGHT IN REACH. WILL CONTINUE TO TREAT UNTIL END OF SHIFT.
--- NOTE | 2024-08-30 22:51 | NUR ---
ASSUMED CARE OF PT AT 1900. PT REMAINS AOX4 ON ROOM AIR. PT OOB TO RECLINER. PT USES CALL LIGHT APPROPRIATELY AND ABLE TO MAKE NEEDS KNOWN. PT ABLE TO AMBULATE TO BR WITH SBA TO INDEPENDENTLY, STEADY ON FEET, MILD LIMP D/T RECENT LEFT KNEE SURGERY, NO BALANCE ISSUES.
--- NOTE | 2024-08-30 23:11 | NUR ---
REPORT GIVEN TO SAUMYA AZEVEDO ON MEDICAL FLOOR. PT TRANSPORTED WITH ALL BELONGINGS AND CHART TO RM [id number].
--- NOTE | 2024-08-31 01:22 | NUR ---
08/30/24 2331 PT ARRIVED TO ROOM FROM PCU IN STABLE CONDITION. AGREE WITH PREVIOUS NURSES ASSESSMENT. PT HAS A WOUND ON THE R GLUTEAL FOLD AND HAS HAD A RECENT SURGERY ON HIS L KNEE, THERE ARE STERI STRIPS ON HIS L KNEE. REPORTS SOB THAT INCREASES WITH EXERTION, ON RA AT 92%.
--- NOTE | 2024-08-31 02:02 | NUR ---
PT SITTING IN RECLINER, WATCHING TV. OFFERED PT A WARM BLANKET AND TEA, PT REPORTS HE ALREADY HAS A WARM BLANKET AND SOME APPLEJUICE. DENIES NEED FOR ANYTHING ELSE. NO APPARENT SIGNS OF DISTRESS. CALL LIGHT IS IN REACH.
--- NOTE | 2024-08-31 03:45 | NUR ---
PT IS AAO X 4, ON RA. WOUND TO L KNEE FROM SURG IN OCT, HAS STERI STRIPS. SMALL WOUND TO R GLUTEAL FOLD. SOB THAT INCREASES WITH EXERTION. ON RA AT 92%.
--- NOTE | 2024-08-31 03:45 | NUR ---
PT LYING IN BED, EYES CLOSED, APPEARS TO BE RESTING. BREATHING IS EVEN, UNLABORED. NO APPARENT SIGNS OF DISTRESS. CALL LIGHT IS IN REACH.
[2024-08-31 04:03] VITALS: BP 117/80
[2024-08-31] MEDS ORDERED: Calcium Carbonate 500 MG Tab Chew PO PRN (04:50)
[2024-08-31 05:05] LABS: BASOPHILS ABSOLUTE AUTO 0.03 K/mm3 (0.00-0.23); BASOPHILS PERCENT AUTO 0 % (0-2); EOSINOPHILS PERCENT AUTO 0 % (0-6); Hematocrit 37.5 % (37.0-53.0); Hemoglobin 12.5 g/dL (13.5-17.5); IMMATURE GRAN ABSOLUTE AUTO 0.16 K/mm3 (0.00-0.10); IMMATURE GRAN PERCENT AUTO 1 % (0-1); LYMPHOCYTES ABSOLUTE AUTO 0.96 K/mm3 (0.84-5.20); LYMPHOCYTES PERCENT AUTO 5 % (21-46); MONOCYTES ABSOLUTE AUTO 0.71 K/mm3 (0.16-1.47); MONOCYTES PERCENT AUTO 3 % (4-13); Mean Corpuscular HGB 30.6 pg (26.0-34.0); Mean Corpuscular HGB Conc 33.3 g/dL (31.5-36.5); Mean Corpuscular Volume 92 fL (80-100); NEUTROPHILS PERCENT AUTO 91 % (41-73); Platelet Count 320 K/mm3 (150-400); RDW Coefficient Variation 13.3 % (11.7-14.2); RDW Standard Deviation 45.8 fL (35.1-46.3); Red Blood Cell Count 4.09 M/mm3 (4.30-5.90); White Blood Cell Count 21.26 K/mm3 (4.00-11.30)
[2024-08-31 05:33] LABS: Albumin, Blood 2.9 g/dL (3.4-5.0); Anion Gap 12 mmol/L (3-11); Blood Urea Nitrogen 29 mg/dL (8-24); Bun/Creatinine Ratio 30.8 (12.0-20.0); CO2, Blood 21 mmol/L (21-32); Calcium, Blood 8.7 mg/dL (8.5-10.1); Chloride, Blood 112 mmol/L (98-108); Creatinine, Blood 0.94 mg/dL (0.60-1.20); Glomerular Filtration Rate 85 (60-); Glucose, Blood 159 mg/dL (70-99); Phosphorus, Blood 2.5 mg/dL (2.5-4.9); Potassium, Blood 4.1 mmol/L (3.5-5.5); Sodium, Blood 141 mmol/L (136-145)
--- NOTE | 2024-08-31 06:03 | NUR ---
PT REQUESTED SOMETHING FOR HEARTBURN. SPOKE WITH DR SESAY AND TUMS IS NOW ORDERED. TOOK TUMS TO PT'S ROOM BUT PT APPEARS TO BE RESTING. NO APPARENT SIGNS OF DISTRESS. CALL LIGHT IS IN REACH. PLACED TUMS IN PT'S LOCKED MEDICATION DRAWER. WILL WAIT FOR PT TO WAKE TO GIVE THE TUMS. NO OTHER CHANGES THIS SHIFT.
[2024-08-31 07:43] VITALS: BP 126/78
[2024-08-31] MEDS ORDERED: CLAVULANATE K PO SCH (09:00)
[2024-08-31] MEDS ORDERED: Azithromycin 250 MG Tab PO SCH (09:00)
[2024-08-31] MEDS ORDERED: CefTRIAXone Sodium 2,000 MG in NS 100 ML IV SCH (09:00)
[2024-08-31] MEDS ORDERED: AMOXICILLIN PO SCH (09:00)
--- NOTE | 2024-08-31 10:11 | NUR ---
Late Note from 08/30/24. Patient's SO, Pattie and his best friend Joe, are in the hallway outside of the pateint's room. They explain about the long list of challenging behaviors that the patient has exhibited. We discuss many options as to the best way to have good boudaries and yet still care for the patient's needs. At the end of the discussion, conclusions were reached that will allow Pattie to distance herself from the patient and have more remote ways of helping him manage. Pattie requests that she would be notified if the patient is discharged or leaves AMA. I check with the patient's RN and she states that this can be arranged. Pattie states her appreciation for spiritual care involvement. I will continue to remain available.
--- NOTE | 2024-08-31 10:45 | NUR ---
FOLLOWING SHOWER PATIENT REQUESTED TO LEAVE CLOTH DOT OFF OF WOUND ON BUTTOCKS TO GET AIR. BANDAGE REMOVED-AYLIN REPORT TO YONI Kuhn RN TO REPLACE ELIOT. PATIENT EDUCATED TO CHANGE POSITIONS TO RELIEVE PRESSURE OFF OF AREA.
--- NOTE | 2024-08-31 13:26 | NUR ---
PATIENT IS A&OX4. PATIENT IS INDEPENDENT IN ROOM. PATIENT CALLS APPROPRIATELY AND IS ABLE TO MAKE NEEDS KNOWN-PATIENT IS TALKATIVE. PATIENT UP TO SHOWER THIS MORNING, LINENS CHANGED. PATIENT SITTING UP IN RECLINER WITH LEGS UP. PATIENT REQUEST TO TALK TO MARLENI NURSING DENTAL MOLD MAKER IN REGARDS TO AN ISSUE HE HAS ALREADY DISCUSSED WITH HIM-PATIENT ADVOCATE CARD GIVEN TO PATIENT AT THIS TIME. PATIENT HAS AN OCCASSIONAL COUGH. PATIENT IS PLEASANT AND COOPERATIVE WITH CARE. THIS RN TO GIVE REPORT TO YONI Kuhn RN.
--- NOTE | 2024-08-31 14:01 | NUR ---
THIS RN ASSUMED CARE OF PT. REPORT RECIEVED FROM SAUMYA RIVERA. INTRODUCED SELF TO PT. PT HAS NO NEEDS AT THIS TIME. CALL LIGHT IN REACH
[2024-08-31] MEDS ORDERED: AMOCLA875 PO (15:34)
[2024-08-31] MEDS ORDERED: PRED20 PO (15:35)
--- NOTE | 2024-08-31 16:51 | NUR ---
SHIFT SUMMARY ASSUMED CARE OF PATIENT. PATIENT ALERT AND INTERACTIVE. PATIENT ABLE TO AMBULATE INDEPENDENTLY IN THE ROOM. PATIENT HAD RECENT KNEE SURGERY TO L KNEE ON 08/05. STERI STRIPS STILL IN PLACE. PATIENT STATES THAT HE HAS A BED SORE ON HIS BUTTOCKS FROM PREVIOUS HOSPITALIZATION FOR HIS KNEE SURGERY. AREA SCABBED OVER. PATIENT STATES THAT IT IS MUCH SMALLER. MEPILEX DRESSING APPLIED TO AREA. PATIENT EDUCATED ON WOUND CARE, DIET, AND POSITIONING TO HELP WITH HEALING AND PREVENTING FURTHER WOUNDS. EDUCATION PROVIDED RELATED TO COPD AND CPAP USE. PATIENT HAS FOLLOW UP APPOINTMENT SCHEDULED WITH DR SARKAR AND ORTHOPEDIC SURGEON. PATIENT SEES PR FOR MEDICAL CARE. DISCHARGE INSTRUCTIONS REVIEWED WITH PATIENT. IVS REMOVED. WAITING FOR RIDE. BELONGINGS RETURNED TO PATIENT AND HOME NARCOTICS OBTAINED FROM PHARMACY AND GIVEN TO PATIENT.
--- NOTE | 2024-08-31 17:29 | NUR ---
PATIENT TAKEN OUT VIA WHEELCHAIR. RIDE HERE TO PICK PATIENT UP.
--- NOTE | 2024-08-31 17:47 | NUR ---
Pt. is awake in his chair when he welcomed my visit. Pt. displays evidence of wanting to talk. With theraputic listening and a calming presence this group marketing vp sought to encourage the Pt. who verbalizes about his life and the challenges he has faced. Facilitated more life review and considered matters of yarelis and belief. The Pts. new nurse came to bedside and introduced herself. WHen the Pt. needed to use the bathroom this group marketing vp excused himself. Will remain available to the Pt.
[2024-09-01] MEDS ORDERED: PredniSONE 20 MG Tab PO SCH (09:00)
== END 2024-08-31 17:20 | disposition home or self-care (01) | DRG 871 ==
LOC: ER 09:13 → PCU 14:27 → MEDS 14:27 → PCU 18:16 → MEDS 08-30 23:10
PROVIDERS: Emergency Medicine; Family Medicine; ADMIT Internal Medicine
PROC: 3E03329 Introduction of Other Anti-infective into Peripheral Vein, Percutaneous Approach (ICD-10-PCS; principal; 2024-08-29)
PROC: 5A09357 Assistance with Respiratory Ventilation, Less than 24 Consecutive Hours, Continuous Positive Airway Pressure (ICD-10-PCS; 2024-08-29)
PROC: 5A0935A Assistance with Respiratory Ventilation, Less than 24 Consecutive Hours, High Flow/Velocity Cannula (ICD-10-PCS; 2024-08-29)
DX: A41.9 Sepsis, unspecified organism (principal); J18.9 Pneumonia, unspecified organism; J96.01 Acute respiratory failure with hypoxia; J96.02 Acute respiratory failure with hypercapnia; Z66 Do not resuscitate; J44.0 Chronic obstructive pulmonary disease with (acute) lower respiratory infection; I48.20 Chronic atrial fibrillation, unspecified; J44.1 Chronic obstructive pulmonary disease with (acute) exacerbation; L89.319 Pressure ulcer of right buttock, unspecified stage; E78.5 Hyperlipidemia, unspecified; N40.0 Benign prostatic hyperplasia without lower urinary tract symptoms; M25.562 Pain in left knee; Z98.890 Other specified postprocedural states; Z79.01 Long term (current) use of anticoagulants; Z79.82 Long term (current) use of aspirin; Z79.899 Other long term (current) drug therapy; Z87.891 Personal history of nicotine dependence; Z91.040 Latex allergy status
CPT/HCPCS: 0241U; 36415; 71045; 71260; 80053; 80069; 82803; 83605; 83735; 83880; 84100; 84484; 85025; 85379; 87040; 87077; 87186; 93005; 93010; 94640; 94660; 94664; 94762; 96361; 96365-59; 96366; 96368; 99285-25; A9270; J0456; J0696; J2919; J3475; J7030; J7050; Q9967